=== PATIENT | male | born 1985 | race Caucasian/White ===

== ENCOUNTER 2018-05-11 19:24 | Emergency (ER) | payer SELFPAY ==
[~2018-05-11] VITALS: Ht 177.8 cm; Wt 81.6 kg
[~2018-05-11 19:24] MED LIST: ACHD5005 PO; CYCL10TA9 PO; HYDR-2890 PO; NAPR-243 PO; NF-TRA/ACE PO; PHN100C PO; PNT40TEC; PRD10T PO; PROP1TAB77; TRAM-368 PO; ZLP10T PO
--- OUTSIDE RECORDS SUMMARY | 2018-05-11 19:30 | XMS REPORT ---
Author Author JESUS RICE Organization [facility] Address [address] [place] [address] Care Team Providers Care Travel Registered Nurse Pacu Name Role Phone JESUS RICE Unavailable PROBLEMS Type Condition ICD9-CM Code [id number] Code Onset Dates Condition Status SNOMED Code Problem Attention deficit hyperactivity disorder (ADHD), predominantly inattentive type F90.0 Active 05996196 Problem Abscess of groin L02.214 Active 55569378 Problem Anxiety disorder, unspecified F41.9 Active 695527392 Problem Alcohol dependence, uncomplicated F10.20 Active 68523136 Problem Major depressive disorder, recurrent, moderate F33.1 Active 30602101 ALLERGIES No Known Allergies ENCOUNTERS Encounter Location Date Diagnosis [place] [address] [address] June, Anxiety disorder, unspecified F41.9 [place] [address] [address]- [address] May, Anxiety disorder, unspecified F41.9 [place] [address] [place] [id number] [place] [address] 81961- 3310 Apr, Anxiety disorder, unspecified F41.9 [place] [address] [place] [id number] [place] [address] 06857- 9299 14 Mar, 2017 Anxiety disorder, unspecified F41.9 and Attention deficit hyperactivity disorder (ADHD), predominantly inattentive type F90.0 [place] [address] 067[address]- 2458 15 Feb, 2017 Thoracic neuritis M54.14 [facility] [address] [place] [id number] [place] [address] [id number] 03 Feb, 2017 Dental examination Z01.20 [place] [address] 07879- 3976 Jan, Thoracic neuritis M54.14 [facility] [address] [id number] [id number] Jan, Dental examination Z01.20 [facility] [address] [place] [id number] [place] [address] 730301- 7566 Dec, Thoracic neuritis M54.14 [facility] [address] [place] [id number] [place] [address] 11506- 6356 Nov, [facility] [address] [place] [id number] [place] [address] 70757- 8856 Nov, Thoracic neuritis M54.14 [facility] [address] [id number] [place] [address] [id number] Nov, Dental examination Z01.20 [facility] [address] [place] [address] 915066- 6116 Oct, Thoracic neuritis M54.14 [facility] [address] [place] [address] 19923- 6786 Sep, Thoracic neuritis M54.14 [facility] [address] [place] [id number] [place] [address] 507747- 5666 Sep, Thoracic neuritis M54.14 [facility] [address] [place] [id number] [place] [address] 82688- 4516 Aug, Thoracic neuritis M54.14 [facility] [address] [place] [address] 913194- 3086 Jul, Thoracic neuritis M54.14 [facility] [address] [place] [address] 128242- 3956 Jul, [facility] [address] [place] [id number] [place] [address] 045892- 6516 Jul, [facility] [address] [place] [address] 63171- 5487 June, Thoracic neuritis M54.14 and Attention deficit hyperactivity disorder (ADHD), predominantly inattentive type F90.0 [facility] [address] [id number] June, Dental examination Z01.20 [facility] [address] [place] [id number] [place] [address] 98505- 4391 June, [facility] [address] [place] [id number] [place] [address] 88795- 5814 June, Attention deficit hyperactivity disorder (ADHD), predominantly inattentive type F90.0 [facility] [address] [place] [id number] [place] [address] 15626- 9917 May, Attention deficit hyperactivity disorder (ADHD), predominantly inattentive type F90.0 and Thoracic spine pain M54.6 [facility] [address] [place] [id number] [place] [address] 08940- 4765 May, [facility] [address] [place] [id number] [place] [address] 27286- 8953 Apr, [facility] [address] [place] [id number] [place] [address] 25435- 3542 Apr, [facility] [address] [place] [id number] [place] [address] 97107- 7247 Apr, [facility] [address] [place] [id number] [place] [address] 90079- 6645 Mar, [facility] [address] [place] [id number] [place] [address] 85093- 1762 Feb, [facility] [address] [place] [id number] [place] [address] 45944- 8483 Jan, [facility] [address] [place] [id number] [place] [address] 34761- 7350 Dec, [facility] [address] [place] [id number] [place] [address] 07214- 7432 Dec, [facility] [address] [place] [id number] [place] [address] 57390- 1944 Nov, [facility] [address] [place] [id number] [place] [address] 46177- 0346 Oct, [facility] [address] [place] [id number] [place] [address] 68209- 1487 Sep, ADHD (attention deficit hyperactivity disorder), inattentive type F90.0 and Abscess of scrotal wall N49.[address] [facility] [address] [address] -0321 Sep, Abscess of groin L02.214 [facility] [address] [place] [id number] [place] [address] 59143- 6368 Sep, Muscle spasm M62.838 [facility] [address] [place] [id number] [place] [address] 21506- 7036 Aug, ADHD (attention deficit hyperactivity disorder), inattentive type F90.0 [place] [address] 21761- 8722 Jul, Anxiety F41.9 [place] [address] [place] [id number] [place] [address] 39834- 7326 June, Mood disorder F39 [facility] [address] [place] [id number] [place] [address] 66069- 4694 Apr, Major depressive disorder, recurrent, moderate F33.1 ; Alcohol dependence, uncomplicated F10.20 and Anxiety disorder, unspecified F41.9 [facility] [address] [place] [address] [id number] [place] [address] [phone] Jul, Dental examination V72.2 [facility] [address] [place] [id number] [place] [address] 49013- 7021 14 May, 2014 [facility] [address] 56282- 6639 13 May, 2014 [facility] [address] [place] [id number] [place] [address] 89431- 3376 11 Apr, 2014 [facility] [address] [facility] [id number] [address]- [address] Apr, [facility] [address] [id number] [address]- 7896 Feb, [facility] [address] [id number] [address]- 2546 Feb, [facility] [address] [facility] [id number], [place] [address]- 2546 Jan, [facility] [address] [place] [id number] [address]- 2546 Jan, [facility] [address] [id number] [address]- 1466 Dec, [facility] [address] [facility] [id number], [place] [address]- 3306 Dec, IMMUNIZATIONS No Known Immunizations SOCIAL HISTORY Never Assessed REASON FOR VISIT ADHD, sometimes has trouble sleeping usually because he took it too late in the day. , ameritox, due for refill on Boutte and Adderall today CBrumbackRN PLAN OF CARE VITAL SIGNS Height 71 in 2017-04-04 Weight 161.8 lbs 2017-04-04 Temperature 97.9 degrees Fahrenheit 2017-04-04 Heart Rate 76 bpm 2017-04-04 Respiratory Rate 16 2017-04-04 BMI 22.56 kg/m2 2017-04-04 Blood pressure systolic 120 mmHg 2017-04-04 Blood pressure diastolic 74 mmHg 2017-04-04 MEDICATIONS Medication Instructions Dosage Frequency Start Date End Date Duration Status Adderall 20 MG Orally 2 times a day 1 tablet 12h Mar, 28 days Active Boutte 10-325 MG Orally every 6 hrs 1 tablet as needed 6h Mar, 28 days Active RESULTS No Results PROCEDURES No Known procedures INSTRUCTIONS MEDICATIONS ADMINISTERED No Known Medications MEDICAL (GENERAL) HISTORY Type Description Date Medical History attention deficit hyperactivity disorder Surgical History tonsilectomy Surgical History Right testicle removed. Hospitalization History overnight stay for head injury 2010
--- OUTSIDE RECORDS SUMMARY | 2018-05-11 19:30 | XMS REPORT ---
Author Author JESUS RICE Organization 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 Name Role Phone JESUS RICE Unavailable PROBLEMS Type Condition ICD9-CM Code [id number] Code Onset Dates Condition Status SNOMED Code Problem Attention deficit hyperactivity disorder (ADHD), predominantly inattentive type F90.0 Active 11304716 Problem Abscess of groin L02.214 Active 04921857 Problem Anxiety disorder, unspecified F41.9 Active 193333284 Problem Alcohol dependence, uncomplicated F10.20 Active 13307756 Problem Major depressive disorder, recurrent, moderate F33.1 Active 12635880 ALLERGIES No Information ENCOUNTERS Encounter Location Date Diagnosis [place] [address] [address] June, Anxiety disorder, unspecified F41.9 [place] [address] 560[address]- 0221 May, Anxiety disorder, unspecified F41.9 [place] [address] [place] [id number] [place] [address] 14680- 3836 Apr, Anxiety disorder, unspecified F41.9 [place] [address] 65561- 2255 14 Mar, 2017 Anxiety disorder, unspecified F41.9 and Attention deficit hyperactivity disorder (ADHD), predominantly inattentive type F90.0 [place] [address] 26557- 3611 15 Feb, 2017 Thoracic neuritis M54.14 [facility] [address] [id number] [place] [address] [id number] 03 Feb, 2017 Dental examination Z01.20 [place] [address] 30446- 2286 Jan, Thoracic neuritis M54.14 [facility] [address] [id number] [id number] Jan, Dental examination Z01.20 [facility] [address] [place] [id number] [place] [address] 529075- 8956 Dec, Thoracic neuritis M54.14 [facility] [address] [place] [id number] [place] [address] 17257- 9566 Nov, [facility] [address] [place] [id number] [place] [address] 15926- 0308 Nov, Thoracic neuritis M54.14 [facility] [id number] [place] [address] [id number] Nov, Dental examination Z01.20 [facility] [address] [place] [address] 718522- 4476 Oct, Thoracic neuritis M54.14 [facility] [id number] [place] [address] 96936- 8346 Sep, Thoracic neuritis M54.14 [facility] [address] [place] [id number] [place] [address] 07464- 0846 Sep, Thoracic neuritis M54.14 [facility] [id number] [place] [address] 03375- 6826 Aug, Thoracic neuritis M54.14 [facility] [address] [place] [address] 361506- 6736 Jul, Thoracic neuritis M54.14 [facility] [id number] [place] [address] 549483- 6316 Jul, [facility] [address] [place] [id number] [place] [address] 738352- 3256 Jul, [facility] [id number] [place] [address] 47778- 1296 June, Thoracic neuritis M54.14 and Attention deficit hyperactivity disorder (ADHD), predominantly inattentive type F90.0 [facility] [address] [id number] June, Dental examination Z01.20 [facility] [address] [place] [id number] [place] [address] 57981- 8168 June, [facility] [address] [place] [id number] [place] [address] 75280- 4865 June, Attention deficit hyperactivity disorder (ADHD), predominantly inattentive type F90.0 [facility] [address] [place] [id number] [place] [address] 00997- 2362 May, Attention deficit hyperactivity disorder (ADHD), predominantly inattentive type F90.0 and Thoracic spine pain M54.6 [facility] [address] [place] [id number] [place] [address] 36356- 4219 May, [facility] [address] [place] [id number] [place] [address] 48737- 2751 Apr, [facility] [address] [place] [id number] [place] [address] 66556- 9628 Apr, [facility] [address] [place] [id number] [place] [address] 67561- 7694 Apr, [facility] [address] [place] [id number] [place] [address] 87500- 5659 Mar, [facility] [address] [place] [id number] [place] [address] 65327- 7690 Feb, [facility] [address] [place] [id number] [place] [address] 06826- 8249 Jan, [facility] [address] [place] [id number] [place] [address] 97865- 2960 Dec, [facility] [address] [place] [id number] [place] [address] 20319- 9861 Dec, [facility] [address] [place] [id number] [place] [address] 84238- 3323 Nov, [facility] [address] [place] [id number] [place] [address] 27507- 6731 Oct, [facility] [address] [place] [id number] [place] [address] 84480- 9725 Sep, ADHD (attention deficit hyperactivity disorder), inattentive type F90.0 and Abscess of scrotal wall N49.[address] [facility] [address] [place] [id number] [place] [address] 74128 -6681 Sep, Abscess of groin L02.214 [facility] [address] [place] [id number] [place] [address] 59955- 0442 Sep, Muscle spasm M62.838 [facility] [address] [place] [id number] [place] [address] 95897- 4693 Aug, ADHD (attention deficit hyperactivity disorder), inattentive type F90.0 [place] [address] 56318- 7926 Jul, Anxiety F41.9 [facility] [address] [place] [id number] [place] [address] 54482- 2717 June, Mood disorder F39 [facility] [address] [place] [id number] [place] [address] 58770- 7485 Apr, Major depressive disorder, recurrent, moderate F33.1 ; Alcohol dependence, uncomplicated F10.20 and Anxiety disorder, unspecified F41.9 [facility] [address] [place] [id number] [place] [address] [phone] Jul, Dental examination V72.2 [facility] [address] [place] [id number] [place] [address] 49414- 0293 14 May, 2014 [facility] [address] 01616- 0724 13 May, 2014 [facility] [address] [place] [id number] [place] [address] 17928- 9191 11 Apr, 2014 [facility] [address] [facility] [id number] [address]- 2546 Apr, [facility] [address] [place] [id number] [address] 2546 Feb, [facility] [address] [place] [id number] [address]- 2546 Feb, [facility] [address] [place] [id number] [address]- 2546 Jan, [facility] [address] [place] [id number] [address]- 2546 Jan, [facility] [address] [place] [id number] [address]- 4236 Dec, [facility] [address] [place] [id number] [address]- 7406 Dec, IMMUNIZATIONS No Known Immunizations SOCIAL HISTORY Never Assessed REASON FOR VISIT Controlled Med Refill PLAN OF CARE VITAL SIGNS MEDICATIONS Medication Instructions Dosage Frequency Start Date End Date Duration Status Marcella 10-325 MG Orally 2 times a day 1 tablet as needed 12h Apr, May, 28 days Active Adderall 20 mg Orally Once a day 1 tablet 24h Apr, 28 days Active RESULTS No Results PROCEDURES No Known procedures INSTRUCTIONS MEDICATIONS ADMINISTERED No Known Medications MEDICAL (GENERAL) HISTORY Type Description Date Medical History attention deficit hyperactivity disorder Surgical History tonsilectomy Surgical History Right testicle removed. Hospitalization History overnight stay for head injury 2010
--- OUTSIDE RECORDS SUMMARY | 2018-05-11 19:30 | XMS REPORT ---
Author Author JESUS RICE Organization [facility] Address [address] [place] [address] Care Team Providers Care Plastic Surgery Specialist Name Role Phone JESUS RICE Unavailable PROBLEMS Type Condition ICD9-CM Code [id number] Code Onset Dates Condition Status SNOMED Code Problem Attention deficit hyperactivity disorder (ADHD), predominantly inattentive type F90.0 Active 00196812 Problem Abscess of groin L02.214 Active 68258652 Problem Anxiety disorder, unspecified F41.9 Active 719339642 Problem Alcohol dependence, uncomplicated F10.20 Active 61581778 Problem Major depressive disorder, recurrent, moderate F33.1 Active 26297593 ALLERGIES No Information ENCOUNTERS Encounter Location Date Diagnosis [place] [address] [address] June, Anxiety disorder, unspecified F41.9 [place] [address] 0119[address]- [address]229 May, Anxiety disorder, unspecified F41.9 [place] [address] [place] [id number] [place] [address] 91849- 8636 Apr, Anxiety disorder, unspecified F41.9 [place] [address] 6[address]- [address]26 14 Mar, 2017 Anxiety disorder, unspecified F41.9 and Attention deficit hyperactivity disorder (ADHD), predominantly inattentive type F90.0 [place] [address] 9[address]14- 6422 15 Feb, 2017 Thoracic neuritis M54.14 [facility] [address] [place] [id number] [place] [address] [id number] 03 Feb, 2017 Dental examination Z01.20 [place] [address] 26[address]- 4056 Jan, Thoracic neuritis M54.14 [facility] [address] [id number] [id number] Jan, Dental examination Z01.20 [facility] [address] [place] [id number] [place] [address] [id number]- 2726 Dec, Thoracic neuritis M54.14 [facility] [address] [place] [id number] [place] [address] 31113- 9196 Nov, [facility] [address] [place] [id number] [place] [address] 73232- 4382 Nov, Thoracic neuritis M54.14 [facility] [id number] [place] [address] [id number] Nov, Dental examination Z01.20 [facility] [id number] [place] [address] 573479- 6266 Oct, Thoracic neuritis M54.14 [facility] [id number] [place] [address] 58093- 9946 Sep, Thoracic neuritis M54.14 [facility] [address] [place] [id number] [place] [address] 82465- 4646 Sep, Thoracic neuritis M54.14 [facility] [id number] [place] [address] 64131- 3866 Aug, Thoracic neuritis M54.14 [facility] [address] [place] [address] 436825- 7846 Jul, Thoracic neuritis M54.14 [facility] [address] [place] [address] 031215- 2576 Jul, [facility] [address] [place] [id number] [place] [address] 711639- 6446 Jul, [facility] [address] [place] [address] 38483- 2750 June, Thoracic neuritis M54.14 and Attention deficit hyperactivity disorder (ADHD), predominantly inattentive type F90.0 [facility] [address] [id number] June, Dental examination Z01.20 [facility] [address] [place] [id number] [place] [address] 81404- 9214 June, [facility] [address] [place] [id number] [place] [address] 25246- 3688 June, Attention deficit hyperactivity disorder (ADHD), predominantly inattentive type F90.0 [facility] [address] [place] [id number] [place] [address] 45723- 5538 May, Attention deficit hyperactivity disorder (ADHD), predominantly inattentive type F90.0 and Thoracic spine pain M54.6 [facility] [address] [place] [id number] [place] [address] 94935- 1338 May, [facility] [address] [place] [id number] [place] [address] 22613- 5864 Apr, [facility] [address] [place] [id number] [place] [address] 37221- 3447 Apr, [facility] [address] [place] [id number] [place] [address] 76119- 3425 Apr, [facility] [address] [place] [id number] [place] [address] 70422- 5445 Mar, [facility] [address] [place] [id number] [place] [address] 33544- 8682 Feb, [facility] [address] [place] [id number] [place] [address] 39762- 6801 Jan, [facility] [address] [place] [id number] [place] [address] 51333- 4464 Dec, [facility] [address] [place] [id number] [place] [address] 06579- 5541 Dec, [facility] [address] [place] [id number] [place] [address] 72709- 3025 Nov, [facility] [address] [place] [id number] [place] [address] 76596- 7662 Oct, [facility] [address] [place] [id number] [place] [address] 43474- 4683 Sep, ADHD (attention deficit hyperactivity disorder), inattentive type F90.0 and Abscess of scrotal wall N49.2 [facility] [address] [place] [id number] [place] [address] 43524 -1499 Sep, Abscess of groin L02.214 [facility] [address] [place] [id number] [place] [address] 79138- 4309 Sep, Muscle spasm M62.838 [facility] [address] [place] [id number] [place] [address] 37344- 9810 Aug, ADHD (attention deficit hyperactivity disorder), inattentive type F90.0 [place] [address] 25967- 0302 Jul, Anxiety F41.9 [facility] [address] [place] [id number] [place] [address] 08616- 1035 June, Mood disorder F39 [facility] [address] [place] [id number] [place] [address] 38324- 9651 Apr, Major depressive disorder, recurrent, moderate F33.1 ; Alcohol dependence, uncomplicated F10.20 and Anxiety disorder, unspecified F41.9 [facility] [address] [place] [id number] [place] [address] [phone] Jul, Dental examination V72.2 [facility] [address] [place] [id number] [place] [address] 64438- 0534 14 May, 2014 [facility] [address] 65489- 7435 13 May, 2014 [facility] [address] [place] [id number] [place] [address] 20059- 2084 11 Apr, 2014 [facility] [address] [facility] [id number] [address]- 2546 Apr, [facility] [address] [id number] [address]- 2546 Feb, [facility] [address] [id number] [address]- 2546 Feb, [facility] [address] [place] [id number] [address]- 2546 Jan, [facility] [address] [place] [id number] [address]- 2546 Jan, [facility] [address] [place] [id number] [address]- 2546 Dec, [facility] [address] [id number] [address]- 7856 Dec, IMMUNIZATIONS No Known Immunizations SOCIAL HISTORY Never Assessed REASON FOR VISIT Refill request PLAN OF CARE VITAL SIGNS MEDICATIONS Medication Instructions Dosage Frequency Start Date End Date Duration Status [place] 10-325 MG Orally 2 times a day 1 tablet as needed 12h May, June, 28 days Active Adderall 10 MG Orally Once a day 1 tablet 24h May, 28 days Active RESULTS No Results PROCEDURES No Known procedures INSTRUCTIONS MEDICATIONS ADMINISTERED No Known Medications MEDICAL (GENERAL) HISTORY Type Description Date Medical History attention deficit hyperactivity disorder Surgical History tonsilectomy Surgical History Right testicle removed. Hospitalization History overnight stay for head injury 2010
--- OUTSIDE RECORDS SUMMARY | 2018-05-11 19:30 | XMS REPORT ---
Author Author JESUS RICE Organization [facility] Address [address] [place] [address] Care Team Providers Care Primary Operator Name Role Phone JESUS RICE Unavailable PROBLEMS Type Condition ICD9-CM Code [id number] Code Onset Dates Condition Status SNOMED Code Problem Attention deficit hyperactivity disorder (ADHD), predominantly inattentive type F90.0 Active 89703268 Problem Abscess of groin L02.214 Active 14899592 Problem Anxiety disorder, unspecified F41.9 Active 006679392 Problem Alcohol dependence, uncomplicated F10.20 Active 80447824 Problem Major depressive disorder, recurrent, moderate F33.1 Active 24756727 ALLERGIES No Information ENCOUNTERS Encounter Location Date Diagnosis [place] [address] [address] June, Anxiety disorder, unspecified F41.9 [place] [address] [address]- 1942 May, Anxiety disorder, unspecified F41.9 [place] [address] [place] [id number] [place] [address] 11071- 5557 Apr, Anxiety disorder, unspecified F41.9 [place] [address] 94262- 1690 14 Mar, 2017 Anxiety disorder, unspecified F41.9 and Attention deficit hyperactivity disorder (ADHD), predominantly inattentive type F90.0 [place] [address] 89966- 0311 15 Feb, 2017 Thoracic neuritis M54.14 [facility] [address] [place] [id number] [place] [address] [id number] 03 Feb, 2017 Dental examination Z01.20 [place] [address] 03101- 0256 Jan, Thoracic neuritis M54.14 [facility] [address] [id number] [id number] Jan, Dental examination Z01.20 [facility] [address] [place] [id number] [place] [address] 117718- 7836 Dec, Thoracic neuritis M54.14 [facility] [address] [place] [id number] [place] [address] 39325- 9086 Nov, [facility] [address] [place] [id number] [place] [address] 99391- 5520 Nov, Thoracic neuritis M54.14 [facility] [address] [place] [address] [id number] Nov, Dental examination Z01.20 [facility] [address] [place] [address] 790170- 5236 Oct, Thoracic neuritis M54.14 [facility] [address] [place] [address] 00264- 3396 Sep, Thoracic neuritis M54.14 [facility] [address] [place] [id number] [place] [address] 11513- 7446 Sep, Thoracic neuritis M54.14 [facility] [address] [place] [address] 56945- 2866 Aug, Thoracic neuritis M54.14 [facility] [address] [place] [address] 362429- 5976 Jul, Thoracic neuritis M54.14 [facility] [address] [place] [address] 621946- 5856 Jul, [facility] [address] [place] [id number] [place] [address] 188817- 1646 Jul, [facility] [address] [place] [address] 19741- 4297 June, Thoracic neuritis M54.14 and Attention deficit hyperactivity disorder (ADHD), predominantly inattentive type F90.0 [facility] [address] [id number] June, Dental examination Z01.20 [facility] [address] [place] [id number] [place] [address] 17537- 8979 June, [facility] [address] [place] [id number] [place] [address] 68150- 9795 June, Attention deficit hyperactivity disorder (ADHD), predominantly inattentive type F90.0 [facility] [address] [place] [id number] [place] [address] 51704- 3330 May, Attention deficit hyperactivity disorder (ADHD), predominantly inattentive type F90.0 and Thoracic spine pain M54.6 [facility] [address] [place] [id number] [place] [address] 52420- 4461 May, [facility] [address] [place] [id number] [place] [address] 13581- 4755 Apr, [facility] [address] [place] [id number] [place] [address] 62979- 4840 Apr, [facility] [address] [place] [id number] [place] [address] 89470- 7878 Apr, [facility] [address] [place] [id number] [place] [address] 31789- 1409 Mar, [facility] [address] [place] [id number] [place] [address] 59953- 9983 Feb, [facility] [address] [place] [id number] [place] [address] 86216- 9736 Jan, [facility] [address] [place] [id number] [place] [address] 52260- 3569 Dec, [facility] [address] [place] [id number] [place] [address] 30542- 7097 Dec, [facility] [address] [place] [id number] [place] [address] 32771- 9633 Nov, [facility] [address] [place] [id number] [place] [address] 84348- 7988 Oct, [facility] [address] [place] [id number] [place] [address] 18976- 3487 Sep, ADHD (attention deficit hyperactivity disorder), inattentive type F90.0 and Abscess of scrotal wall N49.2 [facility] [address] [place] [id number] [place] [address] 10798 -6263 Sep, Abscess of groin L02.214 [facility] [address] [place] [id number] [place] [address] 31497- 5340 Sep, Muscle spasm M62.838 [facility] [address] [place] [id number] [place] [address] 85942- 9818 Aug, ADHD (attention deficit hyperactivity disorder), inattentive type F90.0 [place] [address] 19171- 9292 Jul, Anxiety F41.9 [facility] [address] [place] [id number] [place] [address] 09585- 3391 June, Mood disorder F39 [facility] [address] [place] [id number] [place] [address] 77314- 4210 Apr, Major depressive disorder, recurrent, moderate F33.1 ; Alcohol dependence, uncomplicated F10.20 and Anxiety disorder, unspecified F41.9 [facility] [address] [place] [id number] [place] [address] [id number] Jul, Dental examination V72.2 [facility] [address] [place] [id number] [place] [address] 90222- 4439 14 May, 2014 [facility] [address] 26724- 8375 13 May, 2014 [facility] [address] [place] [id number] [place] [address] 16010- 1642 11 Apr, 2014 [facility] [address] [facility] [id number] [address]- 2546 Apr, [facility] [address] [id number] [address] 2546 Feb, [facility] [address] [id number] [address]- 2546 Feb, [facility] [address] [id number] [address]- 2546 Jan, [facility] [address] [id number] [address]- 2546 Jan, [facility] [address] [id number] [address]- 0946 Dec, [facility] [address] [id number] [address]- 8886 Dec, IMMUNIZATIONS No Known Immunizations SOCIAL HISTORY Never Assessed REASON FOR VISIT Controlled Med Refill 06/28/17 PLAN OF CARE VITAL SIGNS MEDICATIONS Medication Instructions Dosage Frequency Start Date End Date Duration Status [place] 5-325 MG Orally 2 times a day 1 tablet as needed 12h June, 28 days Active Adderall 5 MG Orally Once a day 1 tablet 24h June, 28 days Active RESULTS No Results PROCEDURES No Known procedures INSTRUCTIONS MEDICATIONS ADMINISTERED No Known Medications MEDICAL (GENERAL) HISTORY Type Description Date Medical History attention deficit hyperactivity disorder Surgical History tonsilectomy Surgical History Right testicle removed. Hospitalization History overnight stay for head injury 2010
--- OUTSIDE RECORDS SUMMARY | 2018-05-11 19:31 | XMS REPORT ---
Author Author JESUS RICE Organization [facility] Address [address] [place] [address] Care Team Providers Care Toddler Guide Name Role Phone JESUS RICE Unavailable PROBLEMS Type Condition ICD9-CM Code [id number] Code Onset Dates Condition Status SNOMED Code Problem Attention deficit hyperactivity disorder (ADHD), predominantly inattentive type F90.0 Active 08375576 Problem Abscess of groin L02.214 Active 41331529 Problem Anxiety disorder, unspecified F41.9 Active 428546155 Problem Alcohol dependence, uncomplicated F10.20 Active 85933471 Problem Major depressive disorder, recurrent, moderate F33.1 Active 55172967 ALLERGIES No Known Allergies SOCIAL HISTORY Never Assessed PLAN OF CARE VITAL SIGNS Height 71 in 2016-07-10 Weight 173.7 lbs 2016-07-10 Temperature 97.8 degrees Fahrenheit 2016-07-10 Heart Rate 77 bpm 2016-07-10 Respiratory Rate 16 2016-07-10 BMI 24.22 kg/m2 2016-07-10 Blood pressure systolic 131 mmHg 2016-07-10 Blood pressure diastolic 82 mmHg 2016-07-10 MEDICATIONS Medication Instructions Dosage Frequency Start Date End Date Duration Status Adderall 20 MG Orally 2 times a day 1 tablet 12h June, 28 days Active [place] 10-325 MG Orally every 6 hrs 1 tablet as needed 6h June, Jul, 28 days Active RESULTS No Results PROCEDURES Procedure Date Ordered Result Body Site X-RAY EXAM OF THORACIC SPINE July 10, 2016 IMMUNIZATIONS No Known Immunizations MEDICAL (GENERAL) HISTORY Type Description Date Medical History attention deficit hyperactivity disorder Surgical History tonsilectomy Surgical History Right testicle removed. Hospitalization History overnight stay for head injury 2010
--- OUTSIDE RECORDS SUMMARY | 2018-05-11 19:31 | XMS REPORT ---
Author Author JESUS RICE [facility] Address [address] [place] [address] Care Team Providers Care Administrative Services Assistant Name Role Phone JESUS RICE Unavailable PROBLEMS Type Condition ICD9-CM Code JTW15-GE Code Onset Dates Condition Status SNOMED Code Problem Attention deficit hyperactivity disorder (ADHD), predominantly inattentive type F90.0 Active 58910907 Problem Abscess of groin L02.214 Active 40121821 Problem Anxiety disorder, unspecified F41.9 Active 438731380 Problem Alcohol dependence, uncomplicated F10.20 Active 05440081 Problem Major depressive disorder, recurrent, moderate F33.1 Active 27630314 ALLERGIES No Information SOCIAL HISTORY Never Assessed PLAN OF CARE VITAL SIGNS MEDICATIONS Medication Instructions Dosage Frequency Start Date End Date Duration Status Adderall 30 MG Orally Once a day 1 tablet in the morning 24h Mar, 28 days Active RESULTS No Results PROCEDURES No Known procedures IMMUNIZATIONS No Known Immunizations MEDICAL (GENERAL) HISTORY Type Description Date Medical History attention deficit hyperactivity disorder Surgical History tonsilectomy Surgical History Right testicle removed. Hospitalization History overnight stay for head injury 2010
--- OUTSIDE RECORDS SUMMARY | 2018-05-11 19:31 | XMS REPORT ---
Author Author JESUS RICE [facility] Address [address] [place] [address] Care Team Providers Care Textile Knitter Name Role Phone JESUS RICE Unavailable PROBLEMS Type Condition ICD9-CM Code APS23-CS Code Onset Dates Condition Status SNOMED Code Problem Attention deficit hyperactivity disorder (ADHD), predominantly inattentive type F90.0 Active 70486584 Problem Abscess of groin L02.214 Active 20290080 Problem Anxiety disorder, unspecified F41.9 Active 022003331 Problem Alcohol dependence, uncomplicated F10.20 Active 92179887 Problem Major depressive disorder, recurrent, moderate F33.1 Active 53598560 ALLERGIES No Information SOCIAL HISTORY Never Assessed PLAN OF CARE VITAL SIGNS MEDICATIONS Unknown Medications RESULTS No Results PROCEDURES No Known procedures IMMUNIZATIONS No Known Immunizations MEDICAL (GENERAL) HISTORY Type Description Date Medical History attention deficit hyperactivity disorder Surgical History tonsilectomy Surgical History Right testicle removed. Hospitalization History overnight stay for head injury 2010
--- OUTSIDE RECORDS SUMMARY | 2018-05-11 19:31 | XMS REPORT ---
Author Author JESUS RICE [facility] Address [address] [place] [address] Care Team Providers Care Branch Operations Specialist Name Role Phone JESUS RICE Unavailable PROBLEMS Type Condition ICD9-CM Code AVO26-FI Code Onset Dates Condition Status SNOMED Code Problem Attention deficit hyperactivity disorder (ADHD), predominantly inattentive type F90.0 Active 91121065 Problem Abscess of groin L02.214 Active 30165746 Problem Anxiety disorder, unspecified F41.9 Active 588315042 Problem Alcohol dependence, uncomplicated F10.20 Active 30078164 Problem Major depressive disorder, recurrent, moderate F33.1 Active 14851450 ALLERGIES No Information SOCIAL HISTORY Never Assessed PLAN OF CARE VITAL SIGNS MEDICATIONS Medication Instructions Dosage Frequency Start Date End Date Duration Status Adderall 30 MG Orally Once a day 1 tablet in the morning 24h Apr, 28 days Active RESULTS No Results PROCEDURES No Known procedures IMMUNIZATIONS No Known Immunizations MEDICAL (GENERAL) HISTORY Type Description Date Medical History attention deficit hyperactivity disorder Surgical History tonsilectomy Surgical History Right testicle removed. Hospitalization History overnight stay for head injury 2010
--- OUTSIDE RECORDS SUMMARY | 2018-05-11 19:31 | XMS REPORT ---
Author Author KUN DIETRICH [facility] Address Unknown Care Team Providers Care Greens Or Grounds Superintendent Name Role Phone KUN DIETRICH Unavailable PROBLEMS Type Condition ICD9-CM Code [id number] Code Onset Dates Condition Status SNOMED Code Problem Attention deficit hyperactivity disorder (ADHD), predominantly inattentive type F90.0 Active 70743161 Problem Abscess of groin L02.214 Active 46023426 Problem Anxiety disorder, unspecified F41.9 Active 342587216 Problem Alcohol dependence, uncomplicated F10.20 Active 28354248 Problem Major depressive disorder, recurrent, moderate F33.1 Active 77074286 ALLERGIES No Known Allergies ENCOUNTERS Encounter Location Date Diagnosis [facility] [address] [address] June, Anxiety disorder, unspecified F41.9 [facility] [id number] [place] [address] 08801- 2576 May, Anxiety disorder, unspecified F41.9 [facility] [id number] [place] [address] 23356- 9080 Apr, Anxiety disorder, unspecified F41.9 [facility] [id number] [place] [address] 31577- 4287 14 Mar, 2017 Anxiety disorder, unspecified F41.9 and Attention deficit hyperactivity disorder (ADHD), predominantly inattentive type F90.0 [facility] [id number] [place] [address] 42416- 7084 Feb, Thoracic neuritis M54.14 [facility] [id number] [place] [address] [id number] Feb, Dental examination Z01.20 [facility] [address] [address]- [address] Jan, Thoracic neuritis M54.14 [facility] [address] [id number] Jan, Dental examination Z01.20 [facility] [id number] [place] [address] 67355- 8906 Dec, Thoracic neuritis M54.14 [facility] [id number] [place] [address] 42564- 2486 Nov, [facility] [id number] [place] [address] 37226- 0931 Nov, Thoracic neuritis M54.14 [facility] [id number] [place] [address] [id number] Nov, Dental examination Z01.20 [facility] [id number] [place] [address] 81479- 0306 Oct, Thoracic neuritis M54.14 [facility] [id number] [place] [address] 92895- 4466 Sep, Thoracic neuritis M54.14 [facility] [id number] [place] [address] 70815- 7226 Sep, Thoracic neuritis M54.14 [facility] [id number] [place] [address] 31171- 3246 Aug, Thoracic neuritis M54.14 [facility] [id number] [place] [address] 11824- 2236 Jul, Thoracic neuritis M54.14 [facility] [id number] [place] [address] 26946- 8656 Jul, [facility] [id number] [place] [address] 574303- 1096 Jul, [facility] [id number] [place] [address] 89941- 6188 June, Thoracic neuritis M54.14 and Attention deficit hyperactivity disorder (ADHD), predominantly inattentive type F90.0 [facility] [address] [id number] June, Dental examination Z01.20 [facility] [id number] [place] [address] 48366- 2514 June, [facility] [id number] [place] [address] 85169- 4902 June, Attention deficit hyperactivity disorder (ADHD), predominantly inattentive type F90.0 [facility] [id number] [place] [address] 140390- 6974 May, Attention deficit hyperactivity disorder (ADHD), predominantly inattentive type F90.0 and Thoracic spine pain M54.6 [facility] [address] [address] 0909 May, [facility] [id number] [place] [address] 19451- 4516 Apr, [facility] [id number] [place] [address] 81098- 1147 Apr, [facility] [id number] [place] [address] 23268- 8752 Apr, [facility] [address] [address] 9006 08 Mar, 2016 [facility] [address] [address]- 0[address] Feb, [facility] [address] [address] Jan, [facility] [id number] [place] [address] 776388- 4775 Dec, [facility] [address] [id number] Dec, [facility] [id number] [place] [address] 332165- 2505 Nov, [facility] [id number] [place] [address] 05511- 0903 Oct, [facility] [id number] [place] [address] 17079- 0178 Sep, ADHD (attention deficit hyperactivity disorder), inattentive type F90.0 and Abscess of scrotal wall N49.2 [facility] [id number] [place] [address] 17836 -8374 Sep, Abscess of groin L02.214 [facility] [id number] [place] [address] 95413- 5559 Sep, Muscle spasm M62.838 [facility] [id number] [place] [address] 92272- 4302 Aug, ADHD (attention deficit hyperactivity disorder), inattentive type F90.0 [facility] [address] 34171- 0463 Jul, Anxiety F41.9 [facility] [id number] [place] [address] 97624- 8075 June, Mood disorder F39 [facility] [id number] [place] [address] 80272- 8868 Apr, Major depressive disorder, recurrent, moderate F33.1 ; Alcohol dependence, uncomplicated F10.20 and Anxiety disorder, unspecified F41.9 [facility] [id number] [place] [address] [phone] Jul, Dental examination V72.2 [facility] [id number] [place] [address] 88819- 0550 May, [place] [address] 02740- 4461 May, [facility] [id number] [place] [address] 77332- 6468 Apr, [facility] [address] [place] [address]- 2546 Apr, [facility] [id number] [address]- 0266 Feb, [facility] [id number] [address]- 7876 Feb, [facility] [id number] [address]- 1206 Jan, [facility] [id number] [address] 2546 Jan, [facility] [id number] [address]- 7330 Dec, [facility] [id number] [address]- 0396 Dec, IMMUNIZATIONS No Known Immunizations SOCIAL HISTORY Never Assessed REASON FOR VISIT colleen PLAN OF CARE Activity Details Follow Up prn Reason:Filling #8 VITAL SIGNS MEDICATIONS Medication Instructions Dosage Frequency Start Date End Date Duration Status Adderall 20 MG Orally 2 times a day 1 tablet 12h Oct, 28 days Active [place] 10-325 MG Orally every 6 hrs 1 tablet as needed 6h Oct, 28 days Active RESULTS No Results PROCEDURES Procedure Date Ordered Result Body Site LTD ORAL EVALUATION - PROBLEM FOCUS Nov 30, 2016 INTRAORL-PERIAPICAL 1 FILM 53056 Nov 30, 2016 INSTRUCTIONS MEDICATIONS ADMINISTERED No Known Medications MEDICAL (GENERAL) HISTORY Type Description Date Medical History attention deficit hyperactivity disorder Surgical History tonsilectomy Surgical History Right testicle removed. Hospitalization History overnight stay for head injury 2010
--- OUTSIDE RECORDS SUMMARY | 2018-05-11 19:31 | XMS REPORT ---
Author Author JESUS RICE Organization [facility] Address [address] [place] [address] Care Team Providers Care Production Cook Name Role Phone JESUS RICE Unavailable PROBLEMS Type Condition ICD9-CM Code [id number] Code Onset Dates Condition Status SNOMED Code Problem Attention deficit hyperactivity disorder (ADHD), predominantly inattentive type F90.0 Active 69958019 Problem Abscess of groin L02.214 Active 93779695 Problem Anxiety disorder, unspecified F41.9 Active 393903008 Problem Alcohol dependence, uncomplicated F10.20 Active 11142657 Problem Major depressive disorder, recurrent, moderate F33.1 Active 03527060 ALLERGIES No Information ENCOUNTERS Encounter Location Date Diagnosis [place] [id number] [address] June, Anxiety disorder, unspecified F41.9 [place] [address] 174[address]- 4382 May, Anxiety disorder, unspecified F41.9 [place] [id number] [place] [address] 18645- 4486 Apr, Anxiety disorder, unspecified F41.9 [place] [address] 02569- 4236 14 Mar, 2017 Anxiety disorder, unspecified F41.9 and Attention deficit hyperactivity disorder (ADHD), predominantly inattentive type F90.0 [place] [address] 55258- 8960 15 Feb, 2017 Thoracic neuritis M54.14 [facility] [id number] [place] [address] [id number] [phone] Feb, 2017 Dental examination Z01.20 [place] [address] 63750- 6176 Jan, Thoracic neuritis M54.14 [facility] [address] [id number] [id number] Jan, Dental examination Z01.20 [facility] [id number] [place] [address] 861088- 0246 Dec, Thoracic neuritis M54.14 [facility] [id number] [place] [address] 93435- 5286 Nov, [facility] [id number] [place] [address] 10385- 3353 Nov, Thoracic neuritis M54.14 [facility] [address] [place] [address] [id number] Nov, Dental examination Z01.20 [facility] [address] [place] [address] 655102- 4096 Oct, Thoracic neuritis M54.14 [facility] [address] [place] [address] 20013- 8036 Sep, Thoracic neuritis M54.14 [facility] [id number] [place] [address] 31290- 3696 Sep, Thoracic neuritis M54.14 [facility] [address] [place] [address] 12080- 6246 Aug, Thoracic neuritis M54.14 [facility] [address] [place] [address] 805452- 4766 Jul, Thoracic neuritis M54.14 [facility] [address] [place] [address] 498208- 1056 Jul, [facility] [id number] [place] [address] 581298- 9336 Jul, [facility] [address] [place] [address] 25449- 9161 June, Thoracic neuritis M54.14 and Attention deficit hyperactivity disorder (ADHD), predominantly inattentive type F90.0 [facility] [address] [id number] June, Dental examination Z01.20 [facility] [id number] [place] [address] 87226- 3492 June, [facility] [id number] [place] [address] 56012- 1207 June, Attention deficit hyperactivity disorder (ADHD), predominantly inattentive type F90.0 [facility] [id number] [place] [address] 79748- 1270 May, Attention deficit hyperactivity disorder (ADHD), predominantly inattentive type F90.0 and Thoracic spine pain M54.6 [facility] [id number] [place] [address] 78344- 4382 May, [facility] [id number] [place] [address] 71342- 7770 Apr, [facility] [id number] [place] [address] 17633- 0923 Apr, [facility] [id number] [place] [address] 74790- 4376 Apr, [facility] [id number] [place] [address] 78085- 3721 Mar, [facility] [id number] [place] [address] 65241- 6209 Feb, [facility] [id number] [place] [address] 85975- 5227 Jan, [facility] [id number] [place] [address] 32669- 8311 Dec, [facility] [id number] [place] [address] 29860- 6513 Dec, [facility] [id number] [place] [address] 92061- 6864 Nov, [facility] [id number] [place] [address] 19460- 5460 Oct, [facility] [id number] [place] [address] 23731- 6496 Sep, ADHD (attention deficit hyperactivity disorder), inattentive type F90.0 and Abscess of scrotal wall N49.2 [facility] [id number] [place] [address] 97406 -4764 Sep, Abscess of groin L02.214 [facility] [id number] [place] [address] 68582- 4154 Sep, Muscle spasm M62.838 [facility] [id number] [place] [address] 76607- 4493 Aug, ADHD (attention deficit hyperactivity disorder), inattentive type F90.0 [place] [address] 85756- 0269 Jul, Anxiety F41.9 [facility] [id number] [place] [address] 41687- 7244 June, Mood disorder F39 [facility] [id number] [place] [address] 22243- 3072 Apr, Major depressive disorder, recurrent, moderate F33.1 ; Alcohol dependence, uncomplicated F10.20 and Anxiety disorder, unspecified F41.9 [facility] [id number] [place] [address] [id number] Jul, Dental examination V72.2 [facility] [id number] [place] [address] 16480- 9660 14 May, 2014 [facility] [address] 77040- 7997 13 May, 2014 [facility] [id number] [place] [address] 43821- 7595 11 Apr, 2014 [facility] [id number] [address]- 8596 Apr, [facility] [id number] [address]- 0296 Feb, [facility] [address] [place] [address]- 8571 Feb, [facility] [id number] [address]- 8223 Jan, [facility] [address], [place] [address]- 9987 Jan, [facility] [id number] [address]- 4258 Dec, [facility] [id number] [address]- 1045 Dec, IMMUNIZATIONS No Known Immunizations SOCIAL HISTORY Never Assessed REASON FOR VISIT Controlled Med Refill PLAN OF CARE VITAL SIGNS MEDICATIONS Unknown Medications RESULTS No Results PROCEDURES No Known procedures INSTRUCTIONS MEDICATIONS ADMINISTERED No Known Medications MEDICAL (GENERAL) HISTORY Type Description Date Medical History attention deficit hyperactivity disorder Surgical History tonsilectomy Surgical History Right testicle removed. Hospitalization History overnight stay for head injury 2010
--- OUTSIDE RECORDS SUMMARY | 2018-05-11 19:31 | XMS REPORT ---
Author Author JESUS RICE [facility] Address [address] [place] [address] Care Team Providers Care Graphite Grinder Name Role Phone JESUS RICE Unavailable PROBLEMS Type Condition ICD9-CM Code [id number] Code Onset Dates Condition Status SNOMED Code Problem Attention deficit hyperactivity disorder (ADHD), predominantly inattentive type F90.0 Active 34715469 Problem Abscess of groin L02.214 Active 77999944 Problem Anxiety disorder, unspecified F41.9 Active 806949347 Problem Alcohol dependence, uncomplicated F10.20 Active 15539287 Problem Major depressive disorder, recurrent, moderate F33.1 Active 51031526 ALLERGIES No Information SOCIAL HISTORY Never Assessed PLAN OF CARE VITAL SIGNS MEDICATIONS Unknown Medications RESULTS No Results PROCEDURES No Known procedures IMMUNIZATIONS No Known Immunizations MEDICAL (GENERAL) HISTORY Type Description Date Medical History attention deficit hyperactivity disorder Surgical History tonsilectomy Surgical History Right testicle removed. Hospitalization History overnight stay for head injury 2010
--- OUTSIDE RECORDS SUMMARY | 2018-05-11 19:31 | XMS REPORT ---
Author Author JESUS RICE Organization [facility] Address [address] [place] [address] Care Team Providers Care Last Chalker Name Role Phone JESUS RICE Unavailable PROBLEMS Type Condition ICD9-CM Code [id number] Code Onset Dates Condition Status SNOMED Code Problem Attention deficit hyperactivity disorder (ADHD), predominantly inattentive type F90.0 Active 47038790 Problem Abscess of groin L02.214 Active 02418403 Problem Anxiety disorder, unspecified F41.9 Active 198011385 Problem Alcohol dependence, uncomplicated F10.20 Active 24564282 Problem Major depressive disorder, recurrent, moderate F33.1 Active 45516569 ALLERGIES No Information ENCOUNTERS Encounter Location Date Diagnosis [place] [id number] [address] June, Anxiety disorder, unspecified F41.9 [place] [address] [address] May, Anxiety disorder, unspecified F41.9 [place] [address] [place] [id number] [place] [address] 76444- 1193 Apr, Anxiety disorder, unspecified F41.9 [place] [address] 00[address]- [address] 14 Mar, 2017 Anxiety disorder, unspecified F41.9 and Attention deficit hyperactivity disorder (ADHD), predominantly inattentive type F90.0 [place] [address] [address]- [address] 15 Feb, [address] [facility] [id number] [place] [address] [id number] 03 Feb, 2017 Dental examination Z01.20 [place] [address] 9[address]42- 4646 Jan, Thoracic neuritis M54.14 [facility] [address] [id number] [id number] Jan, Dental examination Z01.20 [facility] [id number] [place] [address] 098907- 6816 Dec, Thoracic neuritis M54.14 [facility] [address] [id number] [place] [address] 65311- 2376 Nov, [facility] [address] [address] [id number] [place] [address] 88492- 4675 Nov, Thoracic neuritis M54.14 [facility] [id number] [place] [address] [id number] Nov, Dental examination Z01.20 [facility] [id number] [place] [address] 484112- 8686 Oct, Thoracic neuritis M54.14 [facility] [id number] [place] [address] 70348- 5536 Sep, Thoracic neuritis M54.14 [facility] [address] [address] [id number] [place] [address] 87889- 3426 Sep, Thoracic neuritis M54.14 [facility] [id number] [place] [address] 43667- 6016 Aug, Thoracic neuritis M54.14 [facility] [id number] [place] [address] 453690- 0596 Jul, Thoracic neuritis M54.14 [facility] [id number] [place] [address] 429837- 1676 Jul, [facility] [address] [place] [address] [id number] [place] [address] 478188- 1706 Jul, [facility] [id number] [place] [address] 63566- 9296 June, Thoracic neuritis M54.14 and Attention deficit hyperactivity disorder (ADHD), predominantly inattentive type F90.0 [facility] [address] [id number] June, Dental examination Z01.20 [facility] [address] [id number] [place] [address] 20106- 6325 June, [facility] [address] [place] [id number] [place] [address] 09568- 5987 June, Attention deficit hyperactivity disorder (ADHD), predominantly inattentive type F90.0 [facility] [address] [place] [id number] [place] [address] 44589- 1605 May, Attention deficit hyperactivity disorder (ADHD), predominantly inattentive type F90.0 and Thoracic spine pain M54.6 [facility] [address] [place] [id number] [place] [address] 77443- 2188 May, [facility] [address] [place] [id number] [place] [address] 84004- 2063 Apr, [facility] [address] [place] [id number] [place] [address] 95885- 4576 Apr, [facility] [address] [place] [id number] [place] [address] 88857- 8668 Apr, [facility] [address] [place] [id number] [place] [address] 47590- 1179 Mar, [facility] [address] [place] [id number] [place] [address] 22253- 7254 Feb, [facility] [address] [place] [id number] [place] [address] 56967- 6180 Jan, [facility] [address] [place] [id number] [place] [address] 99117- 4127 Dec, [facility] [address] [place] [id number] [place] [address] 38625- 3696 Dec, [facility] [address] [place] [id number] [place] [address] 48723- 8432 Nov, [facility] [address] [place] [id number] [place] [address] 99869- 2941 Oct, [facility] [address] [place] [id number] [place] [address] 06138- 4469 Sep, ADHD (attention deficit hyperactivity disorder), inattentive type F90.0 and Abscess of scrotal wall N49.2 [facility] [address] [place] [id number] [place] [address] 59181 -9847 Sep, Abscess of groin L02.214 [facility] [address] [place] [id number] [place] [address] 76911- 9312 Sep, Muscle spasm M62.838 [facility] [address] [place] [id number] [place] [address] 72665- 9359 Aug, ADHD (attention deficit hyperactivity disorder), inattentive type F90.0 [place] [address] 09521- 4374 Jul, Anxiety F41.9 [facility] [address] [place] [id number] [place] [address] 82839- 8795 June, Mood disorder F39 [facility] [address] [place] [id number] [place] [address] 03458- 8740 Apr, Major depressive disorder, recurrent, moderate F33.1 ; Alcohol dependence, uncomplicated F10.20 and Anxiety disorder, unspecified F41.9 [facility] [address] [id number] [place] [address] [id number] Jul, Dental examination V72.2 [facility] [address] [place] [id number] [place] [address] 08224- 8632 14 May, 2014 [facility] [address] 05453- 7135 13 May, 2014 [facility] [address] [place] [id number] [place] [address] 77992- 3434 11 Apr, 2014 [facility] [address] [facility] [id number] [address]- 2546 Apr, [facility] [address] [place] [id number] [address] 2546 Feb, [facility] [address] [place] [id number] [address]- 2546 Feb, [facility] [address] [place] [id number] [address]- 2546 Jan, [facility] [address] [place] [id number] [address]- 2546 Jan, [facility] [address] [place] [id number] [address]- 6266 Dec, [facility] [address] [place] [id number] [address]- 5066 Dec, IMMUNIZATIONS No Known Immunizations SOCIAL HISTORY Never Assessed REASON FOR VISIT Controlled Med Refill 12/13/16 PLAN OF CARE VITAL SIGNS MEDICATIONS Medication Instructions Dosage Frequency Start Date End Date Duration Status Adderall 20 MG Orally 2 times a day 1 tablet 12h Nov, 28 days Active [place] 10-325 MG Orally every 6 hrs 1 tablet as needed 6h Nov, 28 days Active RESULTS No Results PROCEDURES No Known procedures INSTRUCTIONS MEDICATIONS ADMINISTERED No Known Medications MEDICAL (GENERAL) HISTORY Type Description Date Medical History attention deficit hyperactivity disorder Surgical History tonsilectomy Surgical History Right testicle removed. Hospitalization History overnight stay for head injury 2010
--- OUTSIDE RECORDS SUMMARY | 2018-05-11 19:31 | XMS REPORT ---
Author Author KUN DIETRICH [facility] Address Unknown Care Team Providers Care Director Hair Name Role Phone KUN DIETRICH Unavailable PROBLEMS Type Condition ICD9-CM Code [id number] Code Onset Dates Condition Status SNOMED Code Problem Attention deficit hyperactivity disorder (ADHD), predominantly inattentive type F90.0 Active 80838390 Problem Abscess of groin L02.214 Active 79088502 Problem Anxiety disorder, unspecified F41.9 Active 072570023 Problem Alcohol dependence, uncomplicated F10.20 Active 04937909 Problem Major depressive disorder, recurrent, moderate F33.1 Active 42577954 ALLERGIES No Information ENCOUNTERS Encounter Location Date Diagnosis [facility] [address] [address]- [address] June, Anxiety disorder, unspecified F41.9 [facility] [address] [place] [id number] [place] [address] 67744- 3583 May, Anxiety disorder, unspecified F41.9 [facility] [address] [place] [id number] [place] [address] 21699- 8629 Apr, Anxiety disorder, unspecified F41.9 [facility] [address] [place] [id number] [place] [address] 27076- 0811 14 Mar, 2017 Anxiety disorder, unspecified F41.9 and Attention deficit hyperactivity disorder (ADHD), predominantly inattentive type F90.0 [facility] [address] [place] [id number] [place] [address] 96320- 4929 Feb, Thoracic neuritis M54.14 [facility] [address] [place] [id number] [place] [address] [id number] Feb, Dental examination Z01.20 [facility] [address] 37509- 8610 Jan, Thoracic neuritis M54.14 [facility] [id number] [id number] Jan, Dental examination Z01.20 [facility] [address] [place] [id number] [place] [address] 99321- 2496 Dec, Thoracic neuritis M54.14 [facility] [address] [place] [id number] [place] [address] 96766- 1446 Nov, [facility] [address] [place] [id number] [place] [address] 60626- 1566 Nov, Thoracic neuritis M54.14 [facility] [address] [place] [id number] [place] [address] [id number] Nov, Dental examination Z01.20 [facility] [address] [place] [id number] [place] [address] 61953- 6266 Oct, Thoracic neuritis M54.14 [facility] [address] [place] [id number] [place] [address] 59104- 6536 Sep, Thoracic neuritis M54.14 [facility] [address] [place] [id number] [place] [address] 67946- 3586 Sep, Thoracic neuritis M54.14 [facility] [address] [place] [id number] [place] [address] 38558- 6246 Aug, Thoracic neuritis M54.14 [facility] [address] [place] [id number] [place] [address] 39812- 5756 Jul, Thoracic neuritis M54.14 [facility] [address] [place] [id number] [place] [address] 38543- 8476 Jul, [facility] [address] [place] [id number] [place] [address] 43354- 8906 Jul, [facility] [address] [place] [address] 05238- 9347 June, Thoracic neuritis M54.14 and Attention deficit hyperactivity disorder (ADHD), predominantly inattentive type F90.0 [facility] [address] [id number] June, Dental examination Z01.20 [facility] [address] [id number] [address]- 6583 June, [facility] [address] [address]- 8381 June, Attention deficit hyperactivity disorder (ADHD), predominantly inattentive type F90.0 [facility] [address] [place] [address] 726104- 1474 May, Attention deficit hyperactivity disorder (ADHD), predominantly inattentive type F90.0 and Thoracic spine pain M54.6 [facility] [address] [address]- 7313 May, [facility] [address] [place] [id number] [place] [address] 95905- 8400 Apr, [facility] [address] [address]- 4716 Apr, [facility] [address] [place] [id number] [place] [address] 93949- 4936 Apr, [facility] [address] [address]- 6026 08 Mar, 2016 [facility] [id number] [address]- 4783 Feb, [facility] [address] [address]- 2240 Jan, [facility] [address] [place] [id number]- 3354 Dec, [facility] [id number] [address]- 1500 Dec, [facility] [id number] [address]- 5852 Nov, [facility] [address] [place] [address] 44804- 3723 Oct, [facility] [address] [place] [id number] [place] [address] 94028- 8253 Sep, ADHD (attention deficit hyperactivity disorder), inattentive type F90.0 and Abscess of scrotal wall N49.2 [facility] [address] [place] [id number] [place] [address] 52580 -8809 Sep, Abscess of groin L02.214 [facility] [address] [place] [id number] [place] [address] 61056- 5156 Sep, Muscle spasm M62.838 [place] [address] [place] [id number] [place] [address] 70525- 7491 Aug, ADHD (attention deficit hyperactivity disorder), inattentive type F90.0 [facility] [address] [place] [id number] [place] [address] 00324- 7639 Jul, Anxiety F41.9 [facility] [address] [place] [id number] [place] [address] 46486- 4881 June, Mood disorder F39 [place] [address] [place] [id number] [place] [address] 24482- 6355 Apr, Major depressive disorder, recurrent, moderate F33.1 ; Alcohol dependence, uncomplicated F10.20 and Anxiety disorder, unspecified F41.9 [facility] [address] [place] [id number] [place] [address] [id number] Jul, Dental examination V72.2 [facility] [address] [place] [id number] [place] [address] 32136- 2340 May, [facility] [address] 10805- 4207 May, [facility] [address] [place] [id number] [place] [address] 42808- 2215 Apr, [facility] [address] [place] [address]- 5546 Apr, [facility] [address] [place] [id number] [address]- 8435 Feb, [facility] [address] [place] [address] [id number] [address]- 6826 Feb, [facility] [address] [place] [id number] [address] 2546 Jan, [facility] [address] [place] [id number] [address]- 7716 Jan, [facility] [address] [place] [id number] [address]- 1372 Dec, [facility] [address] [place] [address] [id number] [address]- 6854 Dec, IMMUNIZATIONS No Known Immunizations SOCIAL HISTORY Never Assessed REASON FOR VISIT colleen PLAN OF CARE VITAL SIGNS MEDICATIONS Unknown Medications RESULTS No Results PROCEDURES Procedure Date Ordered Result Body Site RESIN COMPOS - 3 SURFACES ANTERIOR Jan 19, 2017 INSTRUCTIONS MEDICATIONS ADMINISTERED No Known Medications MEDICAL (GENERAL) HISTORY Type Description Date Medical History attention deficit hyperactivity disorder Surgical History tonsilectomy Surgical History Right testicle removed. Hospitalization History overnight stay for head injury 2010
--- OUTSIDE RECORDS SUMMARY | 2018-05-11 19:32 | XMS REPORT ---
Author Author JESUS RICE Organization [facility] Address [address] [place] [address] Care Team Providers Care Motor And Chassis Inspector Name Role Phone JESUS RICE Unavailable PROBLEMS Type Condition ICD9-CM Code [id number] Code Onset Dates Condition Status SNOMED Code Problem Attention deficit hyperactivity disorder (ADHD), predominantly inattentive type F90.0 Active 82753022 Problem Abscess of groin L02.214 Active 81441264 Problem Anxiety disorder, unspecified F41.9 Active 529690496 Problem Alcohol dependence, uncomplicated F10.20 Active 18187921 Problem Major depressive disorder, recurrent, moderate F33.1 Active 49876923 ALLERGIES No Information ENCOUNTERS Encounter Location Date Diagnosis [place] [address] [address] Apr, Anxiety disorder, unspecified F41.[address] [address]- [address] Mar, Anxiety disorder, unspecified F41.9 and Attention deficit hyperactivity disorder (ADHD), predominantly inattentive type F90.0 [place] [address] [place] [id number] [place] [address] 79559- 7054 Feb, Thoracic neuritis M54.14 [facility] [address] [id number] Feb, Dental examination Z01.20 [facility] [address] 82673- 9756 Jan, Thoracic neuritis M54.14 [facility] [address] [id number] Jan, Dental examination Z01.20 [place] [address] 19172- 0571 Dec, Thoracic neuritis M54.14 [facility] [address] [place] [id number] [place] [address] 51802- 3236 Nov, [facility] [address] [place] [id number] [place] [address] 408855- 7886 Nov, Thoracic neuritis M54.14 [facility] [address] [place] [address] [id number] Nov, Dental examination Z01.20 [facility] [address] [place] [id number] [place] [address] 75257- 9526 Oct, Thoracic neuritis M54.14 [facility] [address] [place] [id number] [place] [address] 94243- 0836 Sep, Thoracic neuritis M54.14 [facility] [address] [place] [id number] [place] [address] 64919- 5556 Sep, Thoracic neuritis M54.14 [facility] [address] [place] [id number] [place] [address] 95144- 1330 Aug, Thoracic neuritis M54.14 [facility] [address] [place] [id number] [place] [address] 99257- 7388 Jul, Thoracic neuritis M54.14 [facility] [address] [place] [id number] [place] [address] 71858- 8116 Jul, [facility] [address] [place] [id number] [place] [address] 34849- 8601 Jul, [facility] [address] [place] [id number] [place] [address] 54497- 0280 June, Thoracic neuritis M54.14 and Attention deficit hyperactivity disorder (ADHD), predominantly inattentive type F90.0 [facility] [address] [place] [address] [id number] June, Dental examination Z01.20 [facility] [address] [place] [id number] [place] [address] 42531- 0014 June, [facility] [address] [address] 4817 June, Attention deficit hyperactivity disorder (ADHD), predominantly inattentive type F90.0 [facility] [address] [address] [address] May, Attention deficit hyperactivity disorder (ADHD), predominantly inattentive type F90.0 and Thoracic spine pain M54.6 [facility] [address] [place] [id number] [place] [address] 34584- 6544 May, [facility] [address] [place] [id number] [place] [address]- 7144 Apr, [facility] [address] [place] [id number] [place] [address] 36824- 0888 Apr, [facility] [address] [place] [id number] [place] [address] 21775- 2602 Apr, [facility] [address] [place] [id number] [address]- 8760 Mar, [facility] [address] [address]- 5533 Feb, [facility] [address] [address]- 7522 Jan, [facility] [address] [address]- 7153 Dec, [facility] [address] [address]- 6464 Dec, [facility] [address] 3012 Nov, [facility] [address] 6725 Oct, [facility] [address] [address]- 0091 Sep, ADHD (attention deficit hyperactivity disorder), inattentive type F90.0 and Abscess of scrotal wall N49.2 [facility] [address] [place] [id number] [place] [address] 56527 -9537 Sep, Abscess of groin L02.214 [facility] [address] [place] [id number] [place] [address] 74954- 9198 Sep, Muscle spasm M62.838 [facility] [address] 13397- 4190 Aug, ADHD (attention deficit hyperactivity disorder), inattentive type F90.0 [facility] [address] [place] [id number] [place] [address] 20162- 4573 Jul, Anxiety F41.9 [facility] [address] [place] [id number] [place] [address] 82038- 8301 June, Mood disorder F39 [facility] [address] 41818- 6090 Apr, Major depressive disorder, recurrent, moderate F33.1 ; Alcohol dependence, uncomplicated F10.20 and Anxiety disorder, unspecified F41.9 [facility] [address] [id number] Jul, Dental examination V72.2 [facility] [address] [place] [id number] [place] [address] 68088- 6214 14 May, 2014 [facility] [address] [place] [id number] [place] [address] 35867- 5415 May, [facility] [address] [place] [id number] [place] [address] 35408- 0246 Apr, [facility] [address] 05894- 6417 Apr, [facility] [address] [place] [id number] [place] [address] 14438- 8434 Feb, [facility] [address] 39871- 4184 Feb, [facility] [address] [facility] [id number] [address]- 2546 Jan, [facility] [address] [facility] [id number] [address]- 2546 Jan, [facility] [address] [facility] [id number] [address]- 2546 Dec, [facility] [address] [facility] [id number] [address]- 2546 Dec, IMMUNIZATIONS No Known Immunizations SOCIAL HISTORY Never Assessed REASON FOR VISIT Controlled Refill Requests PLAN OF CARE VITAL SIGNS MEDICATIONS Medication Instructions Dosage Frequency Start Date End Date Duration Status Adderall 20 MG Orally 2 times a day 1 tablet 12h Aug, 28 days Active Thorp 10-325 MG Orally every 6 hrs 1 tablet as needed 6h Aug, 28 days Active RESULTS No Results PROCEDURES No Known procedures INSTRUCTIONS MEDICATIONS ADMINISTERED No Known Medications MEDICAL (GENERAL) HISTORY Type Description Date Medical History attention deficit hyperactivity disorder Surgical History tonsilectomy Surgical History Right testicle removed. Hospitalization History overnight stay for head injury 2010
--- OUTSIDE RECORDS SUMMARY | 2018-05-11 19:32 | XMS REPORT ---
Author Author JESUS RICE Organization [facility] Address [address] [place] [address] Care Team Providers Care Deputy Manager Name Role Phone JESUS RICE Unavailable PROBLEMS Type Condition ICD9-CM Code OUP06-UG Code Onset Dates Condition Status SNOMED Code Problem Attention deficit hyperactivity disorder (ADHD), predominantly inattentive type F90.0 Active 12973024 Problem Abscess of groin L02.214 Active 81904504 Problem Anxiety disorder, unspecified F41.9 Active 175880790 Problem Alcohol dependence, uncomplicated F10.20 Active 67753519 Problem Major depressive disorder, recurrent, moderate F33.1 Active 39162150 ALLERGIES No Information ENCOUNTERS Encounter Location Date Diagnosis [place] [address] [address]46- 6789 May, Anxiety disorder, unspecified F41.9 [place] [address] 66375- 0348 Apr, Anxiety disorder, unspecified F41.9 [place] [address] 83452- 5092 Mar, Anxiety disorder, unspecified F41.9 and Attention deficit hyperactivity disorder (ADHD), predominantly inattentive type F90.0 [place] [address] 27962- 3341 Feb, Thoracic neuritis M54.14 [facility] [address] [id number] Feb, Dental examination Z01.20 [place] [address] 97605- 9834 Jan, Thoracic neuritis M54.14 [facility] [address] [id number] Jan, Dental examination Z01.20 [facility] [address] [place] [id number] [place] [address] 61984- 7986 Dec, Thoracic neuritis M54.14 [facility] [address] [place] [id number] [place] [address] 82444- 2276 Nov, [facility] [address] [place] [id number] [place] [address] 61729- 1926 Nov, Thoracic neuritis M54.14 [facility] [address] [place] [address] [id number] Nov, Dental examination Z01.20 [facility] [address] [place] [id number] [place] [address] 64407- 7196 Oct, Thoracic neuritis M54.14 [facility] [address] [place] [id number] [place] [address] 87293- 8626 Sep, Thoracic neuritis M54.14 [facility] [address] [place] [address] [place] [address] 06914- 8736 Sep, Thoracic neuritis M54.14 [facility] [address] [place] [address] [place] [address] 41493- 5416 Aug, Thoracic neuritis M54.14 [facility] [address] [place] [id number] [place] [address] 71762 2546 Jul, Thoracic neuritis M54.14 [facility] [address] [place] [id number] [place] [address] 87535 2546 Jul, [facility] [address] [place] [address] [place] [address] 02212- 0866 Jul, [facility] [address] [place] [id number] [place] [address] 63201- 2546 June, Thoracic neuritis M54.14 and Attention deficit hyperactivity disorder (ADHD), predominantly inattentive type F90.0 [facility] [address] [place] [address] [id number] June, Dental examination Z01.20 [facility] [address] [id number] [address]- 9247 June, [facility] [address] [place] [address] [place] [address] 889370- 6876 June, Attention deficit hyperactivity disorder (ADHD), predominantly inattentive type F90.0 [facility] [address] [place] [id number] [place] [address] 07626- 7744 May, Attention deficit hyperactivity disorder (ADHD), predominantly inattentive type F90.0 and Thoracic spine pain M54.6 [facility] [address] [place] [address] [place] [address] 47933- 1086 May, [facility] [address] [place] [id number] [place] [address] 40920- 5486 Apr, [facility] [address] [place] [address] [place] [address] 756690- 4284 Apr, [facility] [address] [place] [address] [place] [address] 46065- 0248 Apr, [facility] [address] [place] [address] [place] [address] 730218- 1526 08 Mar, 2016 [facility] [address] 9046 Feb, [facility] [address] [place] [address] 26547- 2616 Jan, [facility] [address] [id number] [address]- 9976 Dec, [facility] [address] [place] [address] [place] [address] 13360- 0016 Dec, [facility] [address] [place] [id number] [address]- 4536 Nov, [facility] [address] [place] [address] 53391- 3786 Oct, [facility] [address] [place] [address] 55069- 1915 Sep, ADHD (attention deficit hyperactivity disorder), inattentive type F90.0 and Abscess of scrotal wall N49.2 [facility] [address] [place] [address] 67655 -7613 Sep, Abscess of groin L02.214 [facility] [address] [place] [address] [place] [address] 58005- 6929 Sep, Muscle spasm M62.838 [facility] [address] [place] [address] [place] [address] 19210- 5007 Aug, ADHD (attention deficit hyperactivity disorder), inattentive type F90.0 [facility] [address] [place] [address] [place] [address] 07651- 5864 Jul, Anxiety F41.9 [facility] [address] [place] [address] [place] [address] 24299- 3796 June, Mood disorder F39 [facility] [address] [place] [address] [place] [address] 59698- 3569 Apr, Major depressive disorder, recurrent, moderate F33.1 ; Alcohol dependence, uncomplicated F10.20 and Anxiety disorder, unspecified F41.9 [facility] [address] [place] [id number] [place] [address] [id number] Jul, Dental examination V72.2 [facility] [address] [place] [id number] [place] [address] 23211- 6269 May, [facility] [address] [place] [address] [place] [address] 74503- 2732 May, [facility] [address] [place] [address] [place] [address] 69773- 3241 Apr, [facility] [address] [place] [id number] [place] [address] 86844- 7152 Apr, [facility] [address] [place] [address]- 2546 Feb, [facility] [address] [place] [id number] [address]- 2546 Feb, [facility] [address] [place] [id number] [address]- 2546 Jan, [facility] [address] [place] [id number] [address]- 2546 Jan, [facility] [address] [place] [id number] [address]- 2546 Dec, [facility] [address] [facility] [id number] [address]- 9296 Dec, IMMUNIZATIONS No Known Immunizations SOCIAL HISTORY Never Assessed REASON FOR VISIT Controlled Med Refill 10/18/16 PLAN OF CARE VITAL SIGNS MEDICATIONS Medication Instructions Dosage Frequency Start Date End Date Duration Status Wellington 10-325 MG Orally every 6 hrs 1 tablet as needed 6h Sep, 28 days Active Adderall 20 MG Orally 2 times a day 1 tablet 12h Sep, 28 days Active RESULTS No Results PROCEDURES No Known procedures INSTRUCTIONS MEDICATIONS ADMINISTERED No Known Medications MEDICAL (GENERAL) HISTORY Type Description Date Medical History attention deficit hyperactivity disorder Surgical History tonsilectomy Surgical History Right testicle removed. Hospitalization History overnight stay for head injury 2010
--- OUTSIDE RECORDS SUMMARY | 2018-05-11 19:32 | XMS REPORT ---
Author Author JESUS RICE Organization [facility] Address [address] [place] [address] Care Team Providers Care Computer Peripheral Equipment Operator Name Role Phone JESUS RICE Unavailable PROBLEMS Type Condition ICD9-CM Code INF83-SX Code Onset Dates Condition Status SNOMED Code Problem Attention deficit hyperactivity disorder (ADHD), predominantly inattentive type F90.0 Active 61282549 Problem Abscess of groin L02.214 Active 88100616 Problem Anxiety disorder, unspecified F41.9 Active 622882448 Problem Alcohol dependence, uncomplicated F10.20 Active 12936822 Problem Major depressive disorder, recurrent, moderate F33.1 Active 53655630 ALLERGIES No Information ENCOUNTERS Encounter Location Date Diagnosis [place] [address] 9[address]67- 5443 June, Anxiety disorder, unspecified F41.9 [place] [address] 03855- 8827 May, Anxiety disorder, unspecified F41.9 [place] [address] [place] [id number] [place] [address] 56591- 9488 Apr, Anxiety disorder, unspecified F41.9 [place] [address] 56576- 0729 14 Mar, 2017 Anxiety disorder, unspecified F41.9 and Attention deficit hyperactivity disorder (ADHD), predominantly inattentive type F90.0 [place] [address] 73829- 1943 15 Feb, 2017 Thoracic neuritis M54.14 [facility] [address] [place] [id number] [place] [address] [id number] 03 Feb, 2017 Dental examination Z01.20 [place] [address] 61228- 9126 Jan, Thoracic neuritis M54.14 [facility] [address] [id number] [id number] Jan, Dental examination Z01.20 [facility] [address] [place] [id number] [place] [address] 937792- 3326 Dec, Thoracic neuritis M54.14 [facility] [address] [place] [id number] [place] [address] 92160- 2196 Nov, [facility] [address] [place] [id number] [place] [address] 61142- 1370 Nov, Thoracic neuritis M54.14 [facility] [address] [place] [address] [id number] Nov, Dental examination Z01.20 [facility] [address] [place] [address] 881514- 8206 Oct, Thoracic neuritis M54.14 [facility] [address] [place] [address] 77665- 8906 Sep, Thoracic neuritis M54.14 [facility] [address] [place] [id number] [place] [address] 42479- 2876 Sep, Thoracic neuritis M54.14 [facility] [address] [place] [address] 16107- 7246 Aug, Thoracic neuritis M54.14 [facility] [address] [place] [address] 809471- 1236 Jul, Thoracic neuritis M54.14 [facility] [address] [place] [address] 252211- 9336 Jul, [facility] [address] [place] [id number] [place] [address] 087769- 9006 Jul, [facility] [address] [place] [address] 22257- 4500 June, Thoracic neuritis M54.14 and Attention deficit hyperactivity disorder (ADHD), predominantly inattentive type F90.0 [facility] [address] [address] June, Dental examination Z01.20 [facility] [address] [place] [id number] [place] [address] 24153- 5307 June, [facility] [address] [place] [id number] [place] [address] 99453- 1161 June, Attention deficit hyperactivity disorder (ADHD), predominantly inattentive type F90.0 [facility] [address] [place] [id number] [place] [address] 90030- 9147 May, Attention deficit hyperactivity disorder (ADHD), predominantly inattentive type F90.0 and Thoracic spine pain M54.6 [facility] [address] [place] [id number] [place] [address] 55344- 4735 May, [facility] [address] [place] [id number] [place] [address] 73680- 6750 Apr, [facility] [address] [place] [id number] [place] [address] 71737- 3873 Apr, [facility] [address] [place] [id number] [place] [address] 71351- 3942 Apr, [facility] [address] [place] [id number] [place] [address] 53771- 5097 Mar, [facility] [address] [place] [id number] [place] [address] 41959- 0254 Feb, [facility] [address] [place] [id number] [place] [address] 54426- 4816 Jan, [facility] [address] [place] [id number] [place] [address] 78519- 5904 Dec, [facility] [address] [place] [id number] [place] [address] 05715- 6340 Dec, [facility] [address] [place] [id number] [place] [address] 10655- 4168 Nov, [facility] [address] [place] [id number] [place] [address] 03883- 4737 Oct, [facility] [address] [place] [id number] [place] [address] 86793- 6973 Sep, ADHD (attention deficit hyperactivity disorder), inattentive type F90.0 and Abscess of scrotal wall N49.2 [facility] [address] [id number] [place] [address] 86720 -5721 Sep, Abscess of groin L02.214 [facility] [address] [place] [id number] [place] [address] 54658- 3541 Sep, Muscle spasm M62.838 [facility] [address] [place] [id number] [place] [address] 72776- 1059 Aug, ADHD (attention deficit hyperactivity disorder), inattentive type F90.0 [place] [address] 88025- 3875 Jul, Anxiety F41.9 [facility] [address] [place] [id number] [place] [address] 28366- 2242 June, Mood disorder F39 [facility] [address] [place] [id number] [place] [address] 32470- 8041 Apr, Major depressive disorder, recurrent, moderate F33.1 ; Alcohol dependence, uncomplicated F10.20 and Anxiety disorder, unspecified F41.9 [facility] [address] [id number] [place] [address] [id number] Jul, Dental examination V72.2 [facility] [address] [place] [id number] [place] [address] 63911- 9744 14 May, 2014 [facility] [address] 03492- 6629 13 May, 2014 [facility] [address] [place] [id number] [place] [address] 25980- 9764 11 Apr, 2014 [facility] [address] [facility] [id number] [address]- 2546 Apr, [facility] [address] [place] [id number] [address]- 4246 Feb, [facility] [address] [id number] [address] Feb, [facility] [id number] [address] Jan, [facility] [address] [id number] [address] Jan, [facility] [id number] [address] Dec, [facility] [address] [id number] [address] Dec, IMMUNIZATIONS No Known Immunizations SOCIAL HISTORY Never Assessed REASON FOR VISIT Controlled Med Refill 02/07/17 PLAN OF CARE VITAL SIGNS MEDICATIONS Medication Instructions Dosage Frequency Start Date End Date Duration Status Adderall 20 MG Orally 2 times a day 1 tablet 12h Jan, 28 days Active [place] 10-325 MG Orally every 6 hrs 1 tablet as needed 6h Jan, 28 days Active RESULTS No Results PROCEDURES No Known procedures INSTRUCTIONS MEDICATIONS ADMINISTERED No Known Medications MEDICAL (GENERAL) HISTORY Type Description Date Medical History attention deficit hyperactivity disorder Surgical History tonsilectomy Surgical History Right testicle removed. Hospitalization History overnight stay for head injury 2010
--- OUTSIDE RECORDS SUMMARY | 2018-05-11 19:32 | XMS REPORT ---
Author Author JESUS RICE [facility] Address [address] [place] [address] Care Team Providers Care Automation Tender Name Role Phone JESUS RICE Unavailable PROBLEMS Type Condition ICD9-CM Code [id number] Code Onset Dates Condition Status SNOMED Code Problem Attention deficit hyperactivity disorder (ADHD), predominantly inattentive type F90.0 Active 14045675 Problem Abscess of groin L02.214 Active 94899244 Problem Alcohol dependence, uncomplicated F10.20 Active 66004277 Problem Major depressive disorder, recurrent, moderate F33.1 Active 13852658 Problem Anxiety disorder, unspecified F41.9 Active 758625436 ALLERGIES Unknown Allergies SOCIAL HISTORY No smoking Hx information available PLAN OF CARE VITAL SIGNS MEDICATIONS Medication Instructions Dosage Frequency Start Date End Date Duration Status Adderall 30 MG Orally Once a day 1 tablet in the morning 24h Jan, Active RESULTS No Results PROCEDURES No Known procedures IMMUNIZATIONS No Known Immunizations
--- OUTSIDE RECORDS SUMMARY | 2018-05-11 19:32 | XMS REPORT ---
Author LOKI Barbour [facility] eClinical[employer] Address Unknown Phone Unavailable Care Team Providers Care Head Rigger Name Role Phone LOKI LOPEZ CP Unavailable Allergies, Adverse Reactions, Alerts Substance Reaction Event Type N.K.D.A. Info Not Available Non Drug Allergy Problems Problem Type Condition Code Onset Dates Condition Status Problem Anxiety disorder, unspecified F41.9 Active Problem Alcohol dependence, uncomplicated F10.20 Active Problem Major depressive disorder, recurrent, moderate F33.1 Active Assessment Muscle spasm M62.838 Active Medications Medication Code System Code Instructions Start Date End Date Status Dosage Tramadol HCl [facility] [address]-86 50 mg Orally every 6 hrs Sep 24, 2015 1 tablet as needed Adderall [facility] [address]-37 20 mg Orally Once a day September 10, 2015 1 tablet in the morning Procedures Procedure Coding System Code Date Office Visit, Est Pt., Level 2 CPT-4 73412 Sep 24, 2015 Vital Signs Date/Time: Sep 24, 2015 Cardiac Monitoring Heart Rate 76 bpm Weight 171.1 lbs Height 71 in BMI 23.86 Index Blood Pressure Diastolic 83 mmHg Blood Pressure Systolic 134 mmHg Results No Known Results Summary Purpose eClinicalWorks Submission
--- OUTSIDE RECORDS SUMMARY | 2018-05-11 19:32 | XMS REPORT ---
Author JESUS Duran Organization [employer] Address Unknown Phone Unavailable Care Team Providers Care Woodwind Instrument Repairer Name Role Phone JESUS RICE CP Unavailable Allergies, Adverse Reactions, Alerts Substance Reaction Event Type N.K.D.A. Info Not Available Non Drug Allergy Problems Problem Type Condition Code Onset Dates Condition Status Problem Anxiety disorder, unspecified F41.9 Active Problem Alcohol dependence, uncomplicated F10.20 Active Problem Major depressive disorder, recurrent, moderate F33.1 Active Assessment ADHD (attention deficit hyperactivity disorder), inattentive type F90.0 Active Medications Medication Code System Code Instructions Start Date End Date Status Dosage Adderall [facility] [address]-36 20 mg Orally Once a day September 10, 2015 1 tablet in the morning Procedures Procedure Coding System Code Date Office Visit, Est Pt., Level 3 CPT-4 74524 September 10, 2015 Vital Signs Date/Time: September 10, 2015 Cardiac Monitoring Heart Rate 69 bpm Weight 172.6 lbs Height 71 in Blood Pressure Diastolic 98 mmHg Blood Pressure Systolic 126 mmHg Results No Known Results Summary Purpose eClinicalWorks Submission
--- OUTSIDE RECORDS SUMMARY | 2018-05-11 19:32 | XMS REPORT ---
Author JESUS Duran Organization [employer] Address Unknown Phone Unavailable Care Team Providers Care Group Segment Consultant Name Role Phone JESUS RICE CP Unavailable Allergies, Adverse Reactions, Alerts Substance Reaction Event Type N.K.D.A. Info Not Available Non Drug Allergy Problems Problem Type Condition Code Onset Dates Condition Status Problem Major depressive disorder, recurrent, moderate F33.1 Active Problem Anxiety disorder, unspecified F41.9 Active Problem Abscess of groin L02.214 Active Assessment Abscess of scrotal wall N49.2 Active Problem Alcohol dependence, uncomplicated F10.20 Active Assessment ADHD (attention deficit hyperactivity disorder), inattentive type F90.0 Active Medications Medication Code System Code Instructions Start Date End Date Status Dosage [place] [facility] [address]-09 5-325 MG Orally every 6 hrs Oct 11, 2015 1 tablet as needed Adderall [facility] [address]-31 20 mg Orally Once a day September 10, 2015 1 tablet in the morning Bactrim DS [facility] [address]-66 800-160 MG Orally Twice a day Oct 05, 2015 Oct 14, 2015 1 tablet Procedures Procedure Coding System Code Date Office Visit, Est Pt., Level 3 CPT-4 73118 Oct 11, 2015 Vital Signs Date/Time: Oct 11, 2015 Cardiac Monitoring Heart Rate 100 bpm Weight 170.5 lbs Height 71 in BMI 23.78 Index Blood Pressure Diastolic 82 mmHg Blood Pressure Systolic 124 mmHg Results No Known Results Summary Purpose eClinicalWorks Submission
--- OUTSIDE RECORDS SUMMARY | 2018-05-11 19:32 | XMS REPORT ---
Author Author JESUS RICE [facility] Address [address] [place] [address] Care Team Providers Care Trousseau Consultant Name Role Phone JESUS RICE Unavailable PROBLEMS Type Condition ICD9-CM Code [id number] Code Onset Dates Condition Status SNOMED Code Problem Abscess of groin L02.214 Active 98049971 Problem Major depressive disorder, recurrent, moderate F33.1 Active 83772281 Problem Anxiety disorder, unspecified F41.9 Active 521330950 Problem Alcohol dependence, uncomplicated F10.20 Active 80645998 ALLERGIES Unknown Allergies SOCIAL HISTORY No smoking Hx information available PLAN OF CARE VITAL SIGNS MEDICATIONS Medication Instructions Dosage Frequency Start Date End Date Duration Status Adderall 30 MG Orally Once a day 1 tablet in the morning 24h Oct, Active RESULTS No Results PROCEDURES No Known procedures IMMUNIZATIONS No Known Immunizations
--- OUTSIDE RECORDS SUMMARY | 2018-05-11 19:32 | XMS REPORT ---
Author Author JESSICA FERNÁNDEZ Organization eClinical[employer] Address Unknown Phone Unavailable Care Team Providers Care Manager Strategic Development Name Role Phone JESSICA FERNÁNDEZ CP Unavailable Allergies, Adverse Reactions, Alerts Substance Reaction Event Type N.K.D.A. Info Not Available Non Drug Allergy Problems Problem Type Condition Code Onset Dates Condition Status Problem Major depressive disorder, recurrent, moderate F33.1 Active Problem Anxiety disorder, unspecified F41.9 Active Problem Abscess of groin L02.214 Active Problem Alcohol dependence, uncomplicated F10.20 Active Assessment Abscess of groin L02.214 Active Medications Medication Code System Code Instructions Start Date End Date Status Dosage Adderall [facility] [address]-49 20 mg Orally Once a day September 10, 2015 1 tablet in the morning Bactrim DS [facility] [address]-22 800-160 MG Orally Twice a day Oct 05, 2015 Oct 15, 2015 1 tablet Procedures Procedure Coding System Code Date CULTURE, BACTERIA, OTHER CPT-4 56679 Oct 05, 2015 GABRIEL VIRUS ISOLATE, HSV CPT-4 68707 Oct 05, 2015 Office Visit, Est Pt., Level 3 CPT-4 38337 Oct 05, 2015 Vital Signs Date/Time: Oct 05, 2015 Cardiac Monitoring Heart Rate 68 bpm Weight 172 lbs Height 71 in BMI 23.99 Index Blood Pressure Diastolic 82 mmHg Blood Pressure Systolic 120 mmHg Results No Known Results Summary Purpose eClinicalWorks Submission
--- OUTSIDE RECORDS SUMMARY | 2018-05-11 19:32 | XMS REPORT ---
Author Author JESUS RICE [facility] Address [address] [place] [address] Care Team Providers Care Box Covering Machine Operator Name Role Phone JESUS RICE Unavailable PROBLEMS Type Condition ICD9-CM Code [id number] Code Onset Dates Condition Status SNOMED Code Problem Attention deficit hyperactivity disorder (ADHD), predominantly inattentive type F90.0 Active 98876690 Problem Abscess of groin L02.214 Active 98851565 Problem Anxiety disorder, unspecified F41.9 Active 478369446 Problem Alcohol dependence, uncomplicated F10.20 Active 55165917 Problem Major depressive disorder, recurrent, moderate F33.1 Active 70864412 ALLERGIES Unknown Allergies SOCIAL HISTORY No smoking Hx information available PLAN OF CARE VITAL SIGNS MEDICATIONS Medication Instructions Dosage Frequency Start Date End Date Duration Status Adderall 30 MG Orally Once a day 1 tablet in the morning 24h Feb, 28 days Active RESULTS No Results PROCEDURES No Known procedures IMMUNIZATIONS No Known Immunizations
--- OUTSIDE RECORDS SUMMARY | 2018-05-11 19:33 | XMS REPORT ---
Author Author KUN DIETRICH Jan[facility] Address Unknown Care Team Providers Care Metal Crafts Teacher Name Role Phone KUN DIETRICH Unavailable PROBLEMS Type Condition ICD9-CM Code [id number] Code Onset Dates Condition Status SNOMED Code Problem Attention deficit hyperactivity disorder (ADHD), predominantly inattentive type F90.0 Active 66207819 Problem Abscess of groin L02.214 Active 76352760 Problem Anxiety disorder, unspecified F41.9 Active 405655548 Problem Alcohol dependence, uncomplicated F10.20 Active 19192936 Problem Major depressive disorder, recurrent, moderate F33.1 Active 08925167 ALLERGIES No Known Allergies ENCOUNTERS Encounter Location Date Diagnosis [facility] [address] [address] Apr, Anxiety disorder, unspecified F41.9 [facility] [id number] [place] [address] 14 Mar, 2017 Anxiety disorder, unspecified F41.9 and Attention deficit hyperactivity disorder (ADHD), predominantly inattentive type F90.0 [facility] [id number] [place] [address] Feb, Thoracic neuritis M54.14 [facility] [id number] [place] [id number] Feb, Dental examination Z01.20 [facility] [address] [address] Jan, Thoracic neuritis M54.14 [facility] [address] [id number] Jan, Dental examination Z01.20 [facility] [address] [address] Dec, Thoracic neuritis M54.14 [facility] [id number] [place] [address] Nov, [facility] [id number] [place] [id number]- [phone] Nov, Thoracic neuritis M54.14 [facility] [id number] [place] [id number] Nov, Dental examination Z01.20 [facility] [address] [address] Oct, Thoracic neuritis M54.14 [facility] [address] [address] Sep, Thoracic neuritis M54.14 [facility] [id number] [place] [address] Sep, Thoracic neuritis M54.14 [facility] [id number] [place] [address] Aug, Thoracic neuritis M54.14 [facility] [address] [address] Jul, Thoracic neuritis M54.14 [facility] [id number] [place] [address] Jul, [facility] [id number] [place] [address] Jul, [facility] [id number] [place] [address] June, Thoracic neuritis M54.14 and Attention deficit hyperactivity disorder (ADHD), predominantly inattentive type F90.0 [facility] [id number] [place] [id number] June, Dental examination Z01.20 [facility] [id number] [place] [address] June, [facility] [id number] [address] June, Attention deficit hyperactivity disorder (ADHD), predominantly inattentive type F90.0 [facility] [id number] [address] May, Attention deficit hyperactivity disorder (ADHD), predominantly inattentive type F90.0 and Thoracic spine pain M54.6 [facility] [id number] [place] [address] May, [facility] [id number] [address] Apr, [facility] [id number] [place] [address] Apr, [facility] [id number] [address] Apr, [facility] [id number] [address] Mar, [facility] [id number] [place] [address] Feb, [facility] [id number] [address] Jan, [facility] [address] [place] [address] Dec, [facility] [id number] [place] [address] Dec, [facility] [id number] [address] Nov, [facility] [id number] [address] Oct, [facility] [id number] [address] Sep, ADHD (attention deficit hyperactivity disorder), inattentive type F90.0 and Abscess of scrotal wall N49.2 [facility] [id number] [place] [address] Sep, Abscess of groin L02.214 [facility] [id number] [place] [address]- [address] Sep, Muscle spasm M62.838 [facility] [address] [address] Aug, ADHD (attention deficit hyperactivity disorder), inattentive type F90.0 [facility] [address] [address] Jul, Anxiety F41.9 [facility] [address] [address] June, Mood disorder F39 [facility] [address] [address] Apr, Major depressive disorder, recurrent, moderate F33.1 ; Alcohol dependence, uncomplicated F10.20 and Anxiety disorder, unspecified F41.9 [facility] [address] [id number] Jul, Dental examination V72.2 [facility] [id number] [place] [address]- [address] 14 May, 2014 [facility] [id number] [place] [address] May, [facility] [id number] [place] [address] Apr, [facility] [address] [address] Apr, [facility] [id number] [place] [address]- [address] Feb, [facility] [id number] [place] [address] Feb, [facility] [address] [facility] [id number] [address] Jan, [facility] [address] [facility] [id number] [address] Jan, [facility] [address] [facility] [id number] [address] Dec, [facility] [address] [facility] [id number] [address] Dec, IMMUNIZATIONS No Known Immunizations SOCIAL HISTORY Never Assessed REASON FOR VISIT JAZMIN PLAN OF CARE Activity Details Follow Up prn Reason:filling VITAL SIGNS Blood pressure systolic 122 mmHg 2016-07-07 Blood pressure diastolic 79 mmHg 2016-07-07 MEDICATIONS Medication Instructions Dosage Frequency Start Date End Date Duration Status Adderall 20 MG Orally 2 times a day 1 tablet 12h June, 28 days Active [place] 10-325 MG Orally every 6 hrs 1 tablet as needed 6h June, 28 days Active RESULTS No Results PROCEDURES Procedure Date Ordered Result Body Site LTD ORAL EVALUATION - PROBLEM FOCUS July 07, 2016 INTRAORL-PERIAPICAL 1 FILM [id number] July 07, 2016 INSTRUCTIONS MEDICATIONS ADMINISTERED No Known Medications MEDICAL (GENERAL) HISTORY Type Description Date Medical History attention deficit hyperactivity disorder Surgical History tonsilectomy Surgical History Right testicle removed. Hospitalization History overnight stay for head injury 2010
--- OUTSIDE RECORDS SUMMARY | 2018-05-11 19:33 | XMS REPORT ---
Author Author JESUS RICE [facility] Address [address] [place] [address] Care Team Providers Care Electric Truck Driver Name Role Phone JESUS RICE Unavailable PROBLEMS Type Condition ICD9-CM Code [id number] Code Onset Dates Condition Status SNOMED Code Problem Attention deficit hyperactivity disorder (ADHD), predominantly inattentive type F90.0 Active 00691154 Problem Abscess of groin L02.214 Active 03318569 Problem Anxiety disorder, unspecified F41.9 Active 200860895 Problem Alcohol dependence, uncomplicated F10.20 Active 30150310 Problem Major depressive disorder, recurrent, moderate F33.1 Active 72833410 ALLERGIES No Information SOCIAL HISTORY Never Assessed PLAN OF CARE VITAL SIGNS MEDICATIONS Unknown Medications RESULTS No Results PROCEDURES No Known procedures IMMUNIZATIONS No Known Immunizations MEDICAL (GENERAL) HISTORY Type Description Date Medical History attention deficit hyperactivity disorder Surgical History tonsilectomy Surgical History Right testicle removed. Hospitalization History overnight stay for head injury 2010
--- OUTSIDE RECORDS SUMMARY | 2018-05-11 19:33 | XMS REPORT ---
Author Author KUN DIETRICH [facility] Address Unknown Care Team Providers Care Workshop Manager Name Role Phone KUN DIETRICH Unavailable PROBLEMS Type Condition ICD9-CM Code [id number] Code Onset Dates Condition Status SNOMED Code Problem Attention deficit hyperactivity disorder (ADHD), predominantly inattentive type F90.0 Active 89791210 Problem Abscess of groin L02.214 Active 45696128 Problem Anxiety disorder, unspecified F41.9 Active 645978784 Problem Alcohol dependence, uncomplicated F10.20 Active 16664962 Problem Major depressive disorder, recurrent, moderate F33.1 Active 13133470 ALLERGIES No Known Allergies ENCOUNTERS Encounter Location Date Diagnosis [facility] [address] [address] June, Anxiety disorder, unspecified F41.9 [facility] [id number] [place] [address] 16167- 0499 May, Anxiety disorder, unspecified F41.9 [facility] [id number] [place] [address] 42812- 7267 Apr, Anxiety disorder, unspecified F41.9 [facility] [id number] [place] [address] 51941- 3017 14 Mar, 2017 Anxiety disorder, unspecified F41.9 and Attention deficit hyperactivity disorder (ADHD), predominantly inattentive type F90.0 [facility] [id number] [place] [address] 95259- 3629 Feb, Thoracic neuritis M54.14 [facility] [id number] [place] [address] [id number] Feb, Dental examination Z01.20 [facility] [address] [address]- 9383 Jan, Thoracic neuritis M54.14 [facility] [address] [id number] Jan, Dental examination Z01.20 [facility] [id number] [place] [address] 28769- 8626 Dec, Thoracic neuritis M54.14 [facility] [id number] [place] [address] 98312- 6816 Nov, [facility] [id number] [place] [address] 91044- 5166 Nov, Thoracic neuritis M54.14 [facility] [id number] [place] [address] [id number] Nov, Dental examination Z01.20 [facility] [id number] [place] [address] 01654- 8436 Oct, Thoracic neuritis M54.14 [facility] [id number] [place] [address] 32682- 4946 Sep, Thoracic neuritis M54.14 [facility] [id number] [place] [address] 28050- 8436 Sep, Thoracic neuritis M54.14 [facility] [id number] [place] [address] 66790- 5846 Aug, Thoracic neuritis M54.14 [facility] [id number] [place] [address] 04047- 4946 Jul, Thoracic neuritis M54.14 [facility] [id number] [place] [address] 85506- 7336 Jul, [facility] [id number] [place] [address] 917289- 3276 Jul, [facility] [id number] [place] [address] 46941- 5931 June, Thoracic neuritis M54.14 and Attention deficit hyperactivity disorder (ADHD), predominantly inattentive type F90.0 [facility] [address] [id number] June, Dental examination Z01.20 [facility] [id number] [place] [address] 47630- 0082 June, [facility] [id number] [place] [address] 93703- 7606 June, Attention deficit hyperactivity disorder (ADHD), predominantly inattentive type F90.0 [facility] [id number] [place] [address] 628748- 6648 May, Attention deficit hyperactivity disorder (ADHD), predominantly inattentive type F90.0 and Thoracic spine pain M54.6 [facility] [id number] [address]- 6680 May, [facility] [id number] [place] [address] 42050- 9902 Apr, [facility] [id number] [place] [address] 64355- 2170 Apr, [facility] [id number] [place] [address] 02899- 9879 Apr, [facility] [address] [address]- 7798 08 Mar, 2016 [facility] [address] [address] Feb, [facility] [address] [address] Jan, [facility] [id number] [place] [address] 063996- 7302 Dec, [facility] [id number] [address]- 7519 Dec, [facility] [id number] [place] [address] 588188- 9993 Nov, [facility] [id number] [place] [address] 83863- 4999 Oct, [facility] [id number] [place] [address] 06837- 1524 Sep, ADHD (attention deficit hyperactivity disorder), inattentive type F90.0 and Abscess of scrotal wall N49.2 [facility] [id number] [place] [address] 73098 -1582 Sep, Abscess of groin L02.214 [facility] [id number] [place] [address] 37126- 2539 Sep, Muscle spasm M62.838 [facility] [id number] [place] [address] 72830- 7489 Aug, ADHD (attention deficit hyperactivity disorder), inattentive type F90.0 [facility] [address] 82531- 5082 Jul, Anxiety F41.9 [facility] [id number] [place] [address] 95001- 9446 June, Mood disorder F39 [facility] [id number] [place] [address] 31246- 6159 Apr, Major depressive disorder, recurrent, moderate F33.1 ; Alcohol dependence, uncomplicated F10.20 and Anxiety disorder, unspecified F41.9 [facility] [id number] [place] [address] [id number] Jul, Dental examination V72.2 [facility] [id number] [place] [address] 48993- 8767 May, [place] [address] 29468- 9055 May, [facility] [id number] [place] [address] 75243- 4646 Apr, [facility] [address] [place] [address]- 6450 Apr, [facility] [address] [facility] [id number] [address] 4[address] Feb, [facility] [id number] [address]- 6007 Feb, [facility] [address] [facility] [id number] [address]- 0302 Jan, [facility] [id number] [address]- 6056 Jan, [facility] [id number] [address]- 3343 Dec, [facility] [id number] [address]- 3976 Dec, IMMUNIZATIONS No Known Immunizations SOCIAL HISTORY Never Assessed REASON FOR VISIT filling PLAN OF CARE Activity Details Follow Up prn Reason:JALYN with hygiene VITAL SIGNS Height 71 in 2017-02-21 Blood pressure systolic 126 mmHg 2017-02-21 Blood pressure diastolic 93 mmHg 2017-02-21 MEDICATIONS Medication Instructions Dosage Frequency Start Date End Date Duration Status [place] 10-325 MG Orally every 6 hrs 1 tablet as needed 6h Jan, 28 days Active Adderall 20 MG Orally 2 times a day 1 tablet 12h Jan, 28 days Active RESULTS No Results PROCEDURES Procedure Date Ordered Result Body Site Dental no charge Feb 21, 2017 INSTRUCTIONS MEDICATIONS ADMINISTERED No Known Medications MEDICAL (GENERAL) HISTORY Type Description Date Medical History attention deficit hyperactivity disorder Surgical History tonsilectomy Surgical History Right testicle removed. Hospitalization History overnight stay for head injury 2010
--- OUTSIDE RECORDS SUMMARY | 2018-05-11 19:33 | XMS REPORT ---
Author Author JESUS RICE [facility] Address [address] [place] [address] Care Team Providers Care Cafe Team Member Name Role Phone JESUS RICE Unavailable PROBLEMS Type Condition ICD9-CM Code [id number] Code Onset Dates Condition Status SNOMED Code Problem Attention deficit hyperactivity disorder (ADHD), predominantly inattentive type F90.0 Active 98799831 Problem Abscess of groin L02.214 Active 73413214 Problem Anxiety disorder, unspecified F41.9 Active 951946416 Problem Alcohol dependence, uncomplicated F10.20 Active 91788427 Problem Major depressive disorder, recurrent, moderate F33.1 Active 76334695 ALLERGIES No Information SOCIAL HISTORY Never Assessed PLAN OF CARE VITAL SIGNS MEDICATIONS Unknown Medications RESULTS No Results PROCEDURES No Known procedures IMMUNIZATIONS No Known Immunizations MEDICAL (GENERAL) HISTORY Type Description Date Medical History attention deficit hyperactivity disorder Surgical History tonsilectomy Surgical History Right testicle removed. Hospitalization History overnight stay for head injury 2010
--- OUTSIDE RECORDS SUMMARY | 2018-05-11 19:33 | XMS REPORT ---
Author JESUS Duran Organization [employer] Address Unknown Phone Unavailable Care Team Providers Care Coat Checker Name Role Phone JESUS RICE CP Unavailable Allergies No Known Allergies Problems Problem Type Condition Code Onset Dates Condition Status Problem Major depressive disorder, recurrent, moderate F33.1 Active Problem Anxiety disorder, unspecified F41.9 Active Problem Abscess of groin L02.214 Active Problem Alcohol dependence, uncomplicated F10.20 Active Medications Medication Code System Code Instructions Start Date End Date Status Dosage Adderall [facility][NOTE 3] [address]-03 30 MG Orally Once a day Nov 08, 2015 1 tablet in the morning Results No Known Results Summary Purpose [employer] Submission
--- OUTSIDE RECORDS SUMMARY | 2018-05-11 19:33 | XMS REPORT ---
Author Author JESUS RICE Organization [facility] Address [address] [place] [address] Care Team Providers Care Wood Hacker Name Role Phone JESUS RICE Unavailable PROBLEMS Type Condition ICD9-CM Code JRH39-TF Code Onset Dates Condition Status SNOMED Code Problem Attention deficit hyperactivity disorder (ADHD), predominantly inattentive type F90.0 Active 08778354 Problem Abscess of groin L02.214 Active 73737251 Problem Anxiety disorder, unspecified F41.9 Active 341624399 Problem Alcohol dependence, uncomplicated F10.20 Active 98743245 Problem Major depressive disorder, recurrent, moderate F33.1 Active 97850014 ALLERGIES No Information ENCOUNTERS Encounter Location Date Diagnosis [place] [address] [address] Apr, Anxiety disorder, unspecified F41.[address] [address]- [address]00 Mar, Anxiety disorder, unspecified F41.9 and Attention deficit hyperactivity disorder (ADHD), predominantly inattentive type F90.0 [place] [address] [address]- 2595 Feb, Thoracic neuritis M54.14 [facility] [address] [id number] Feb, Dental examination Z01.20 [facility] [address] 79[address]- 2167 Jan, Thoracic neuritis M54.14 [facility] [address] [id number] Jan, Dental examination Z01.20 [place] [address] 69[address]- 6650 Dec, Thoracic neuritis M54.14 [facility] [id number] [place] [address] 95262- 0186 Nov, [facility] [id number] [place] [address] 366397- 5246 Nov, Thoracic neuritis M54.14 [facility] [address] [place] [address] [id number] Nov, Dental examination Z01.20 [facility] [id number] [place] [address] 00761- 6848 Oct, Thoracic neuritis M54.14 [facility] [id number] [place] [address] 84825- 6296 Sep, Thoracic neuritis M54.14 [facility] [id number] [place] [address] 25140- 7066 Sep, Thoracic neuritis M54.14 [facility] [id number] [place] [address] 70850- 8437 Aug, Thoracic neuritis M54.14 [facility] [id number] [place] [address] 03283- 6112 Jul, Thoracic neuritis M54.14 [facility] [id number] [place] [address] 24576- 7606 Jul, [facility] [id number] [place] [address] 68658- 9097 Jul, [facility] [id number] [place] [address] 87762- 0872 June, Thoracic neuritis M54.14 and Attention deficit hyperactivity disorder (ADHD), predominantly inattentive type F90.0 [facility] [address] [place] [address] [id number] June, Dental examination Z01.20 [facility] [id number] [place] [address] 26458- 1279 June, [facility] [address] [address]- 7335 June, Attention deficit hyperactivity disorder (ADHD), predominantly inattentive type F90.0 [facility] [address] [address] 9927 May, Attention deficit hyperactivity disorder (ADHD), predominantly inattentive type F90.0 and Thoracic spine pain M54.6 [facility] [id number] [place] [address] 36802- 6283 May, [facility] [id number] [place] [address]- 2223 Apr, [facility] [id number] [place] [address] 56196- 4203 Apr, [facility] [id number] [place] [address] 78476- 3237 Apr, [facility] [id number] [address]- 6691 Mar, [facility] [address], [place] [address]- 0648 Feb, [facility] [address], [place] [address]- 5689 Jan, [facility] [address], [place] [address]- 0383 Dec, [facility] [address], [place] [address]- 0480 Dec, [facility] [address] [address]5 Nov, [facility] [address]873 Oct, [facility] [address], [place] [address]- 9549 Sep, ADHD (attention deficit hyperactivity disorder), inattentive type F90.0 and Abscess of scrotal wall N49.2 [facility] [id number] [place] [address] -1964 Sep, Abscess of groin L02.214 [facility] [id number] [place] [address] 29753- 0082 Sep, Muscle spasm M62.838 [facility] [address] 46794- 1415 Aug, ADHD (attention deficit hyperactivity disorder), inattentive type F90.0 [facility] [id number] [place] [address] 59706- 5765 Jul, Anxiety F41.9 [facility] [id number] [place] [address] 64214- 8142 June, Mood disorder F39 [facility] [address] 79345- 3278 Apr, Major depressive disorder, recurrent, moderate F33.1 ; Alcohol dependence, uncomplicated F10.20 and Anxiety disorder, unspecified F41.9 [facility] [address] [id number] Jul, Dental examination V72.2 [facility] [id number] [place] [address] 19036- 8719 14 May, 2014 [facility] [id number] [place] [address] 23859- 3867 May, [facility] [id number] [place] [address] 81219- 8618 Apr, [facility] [address] 21196- 1755 Apr, [facility] [id number] [place] [address] 94126- 8284 Feb, [facility] [address] [address]16- 4169 Feb, [facility] [address] [facility] [id number] [address]- 2546 Jan, [facility] [address] [facility] [id number] [address]- 2546 Jan, [facility] [address] [facility] [id number] [address]- 2546 Dec, [facility] [address] [facility] [id number] [address]- 2546 Dec, IMMUNIZATIONS No Known Immunizations SOCIAL HISTORY Never Assessed REASON FOR VISIT Controlled Med Refill 09/20/16 PLAN OF CARE VITAL SIGNS MEDICATIONS Medication Instructions Dosage Frequency Start Date End Date Duration Status Adderall 20 MG Orally 2 times a day 1 tablet 12h Sep, 28 days Active [place] 10-325 MG Orally every 6 hrs 1 tablet as needed 6h Sep, 28 days Active RESULTS No Results PROCEDURES No Known procedures INSTRUCTIONS MEDICATIONS ADMINISTERED No Known Medications MEDICAL (GENERAL) HISTORY Type Description Date Medical History attention deficit hyperactivity disorder Surgical History tonsilectomy Surgical History Right testicle removed. Hospitalization History overnight stay for head injury 2010
--- OUTSIDE RECORDS SUMMARY | 2018-05-11 19:33 | XMS REPORT ---
Author JESUS Duran Organization [employer] Address Unknown Phone Unavailable Care Team Providers Care Health And Safety Inspector Name Role Phone JESUS RICE CP Unavailable Allergies No Known Allergies Problems Problem Type Condition Code Onset Dates Condition Status Problem Major depressive disorder, recurrent, moderate F33.1 Active Problem Anxiety disorder, unspecified F41.9 Active Problem Abscess of groin L02.214 Active Problem Alcohol dependence, uncomplicated F10.20 Active Medications Medication Code System Code Instructions Start Date End Date Status Dosage Adderall [facility] [address]-21 30 MG Orally Once a day Jan 10, 2016 1 tablet in the morning Results No Known Results Summary Purpose [employer] Submission
--- OUTSIDE RECORDS SUMMARY | 2018-05-11 19:33 | XMS REPORT ---
Author Author JESUS RICE Organization [facility] Address [address] [place] [address] Care Team Providers Care Coil Inspector Name Role Phone JESUS RICE Unavailable PROBLEMS Type Condition ICD9-CM Code FRI57-WH Code Onset Dates Condition Status SNOMED Code Problem Attention deficit hyperactivity disorder (ADHD), predominantly inattentive type F90.0 Active 87413748 Problem Abscess of groin L02.214 Active 93238503 Problem Anxiety disorder, unspecified F41.9 Active 659603584 Problem Alcohol dependence, uncomplicated F10.20 Active 91931482 Problem Major depressive disorder, recurrent, moderate F33.1 Active 91363259 ALLERGIES No Information SOCIAL HISTORY Never Assessed PLAN OF CARE VITAL SIGNS MEDICATIONS Medication Instructions Dosage Frequency Start Date End Date Duration Status [place] 10-325 MG Orally every 6 hrs 1 tablet as needed 6h June, 28 days Active Adderall 20 MG Orally 2 times a day 1 tablet 12h June, 28 days Active RESULTS No Results PROCEDURES No Known procedures IMMUNIZATIONS No Known Immunizations MEDICAL (GENERAL) HISTORY Type Description Date Medical History attention deficit hyperactivity disorder Surgical History tonsilectomy Surgical History Right testicle removed. Hospitalization History overnight stay for head injury 2010
--- OUTSIDE RECORDS SUMMARY | 2018-05-11 19:33 | XMS REPORT ---
Author JESUS Duran Organization [employer] Address Unknown Phone Unavailable Care Team Providers Care Rn Medical Inpatient Services Name Role Phone JESUS RICE CP Unavailable Allergies No Known Allergies Problems Problem Type Condition Code Onset Dates Condition Status Problem Major depressive disorder, recurrent, moderate F33.1 Active Problem Anxiety disorder, unspecified F41.9 Active Problem Abscess of groin L02.214 Active Problem Alcohol dependence, uncomplicated F10.20 Active Medications Medication Code System Code Instructions Start Date End Date Status Dosage Adderall [facility] [address]-58 30 MG Orally Once a day Nov 08, 2015 1 tablet in the morning Results No Known Results Summary Purpose [employer] Submission
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
--- NOTE | 2018-05-11 19:53 | NUR ---
CLEAN CATCH UA COLLECTED ON PATIENT.
--- NOTE | 2018-05-11 19:57 | ED GU-Male ---
General Chief Complaint: Male Reproductive Stated Complaint: GROIN PAIN Source: patient History of Present Illness Date Seen by Provider: May 11, 2018 Time Seen by Provider: 19:47 Initial Comments PT ARRIVES VIA POV FROM HOME STATES HE WOKE UP THIS AM WITH LEFT TESTICULAR/SCROTAL PAIN PAIN WAS VERY MILD THIS AM HAS PROGRESSIVELY GOTTEN WORSE THROUGHOUT THE DAY AND IS NOW SEVERE STATES TESTICLE IS A LITTLE SWOLLEN WELL NO PAIN ON URINATION NO PENILE DISCHARGE OR LESIONS/SORES NO ABDOMINAL PAIN OR BACK PAIN NO FEVER NO NAUSEA/VOMITING TOOK IBUPROFEN AT 1300 AND 3 ALEVE 3 HOURS AGO--NO RELIEF NO HISTORY OF SIMILAR PT HAS HAD PREVIOUS 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 PT IS VERY ANXIOUS ABOUT LOSING HIS LEFT TESTICLE Allergies and Home Medications Allergies Coded Allergies: tramadol HCl (Verified Allergy, Unknown, 05/11/18) SEIZURES Patient Home Medication List Home Medication List Reviewed: Yes Review of Systems Review of Systems Constitutional: no symptoms reported Respiratory: no symptoms reported Cardiovascular: no symptoms reported Gastrointestinal: no symptoms reported Genitourinary: see HPI Musculoskeletal: no symptoms reported Skin: no symptoms reported Psychiatric/Neurological: No Symptoms Reported Endocrine: No Symptoms Reported Hematologic/Lymphatic: No Symptoms Reported Past Pvriiza-Yuthif-Wpaujh Hx Patient Social History Recent Foreign Travel: No Contact w/Someone Who Travel: No Immunizations Up To Date Tetanus Booster (TDap): Unknown Past Medical History Surgeries: Yes (RIGHT ORCHIECTOMY AGE 19 FOR UNDESCENDED TESTICLE) Testicular Respiratory: No Cardiac: No Neurological: No Reproductive Disorders: Yes (RIGHT UNDESCENDED TESTICLE -S/P ORCHIECTOMY AGE 19 ) Sexually Transmitted Disease: No HIV/AIDS: No Genitourinary: Yes ( ABOVE) Gastrointestinal: No Musculoskeletal: No Endocrine: No HEENT: No Cancer: No Psychosocial: No Integumentary: No Blood Disorders: No Adverse Reaction/Blood Tranf: No Physical Exam Vital Signs Vital Signs - First Documented 05/11/18 19:27 Temp 98.2 Pulse 108 Resp 20 B/P (MAP) 150/93 (112) Pulse Ox 97 O2 Delivery Room Air Capillary Refill : Height, Weight, BMI Height: 5'10" Weight: 175lbs. oz. 79.488870io; BMI Method:Estimated General Appearance: WD/WN, no apparent distress, other (WALKS WITHOUT DIFFICULTY, VERY ANXIOUS, LOOKS SLIGHTLY UNCOMFORTABLE) Cardiovascular: regular rate, rhythm, no murmur Respiratory: normal breath sounds Gastrointestinal: non tender, soft Male: inguinal tenderness (LEFT), testicular tenderness (LEFT), other (DIFFUSE TENDERNESS TO LEFT SCROTUM AND TESTICLE. NO OVERLYING ERYTHEMA OR INDURATION. NO LESIONS/ SORES, ETC. NO PENILE DRAINAGE. RIGHT TESTICLE IS ABSENT. 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, no motor/sensory deficits, alert, oriented x 3 Skin: normal color, warm/dry; No rash Progress/Results/Core Measures Suspected Sepsis SIRS Temperature: Pulse: Respiratory Rate: Blood Pressure / Mean: Results/Orders Lab Results Laboratory Tests Test 05/11/18 19:53 Range/Units Urine Color YELLOW Urine Clarity SLIGHTLY CLOUDY Urine pH 6 5-9 Urine Specific Arnett 1.015 L 1.016-1.022 Urine Protein 1+ H NEGATIVE Urine Glucose (UA) NEGATIVE NEGATIVE Urine Ketones 1+ H NEGATIVE Urine Nitrite NEGATIVE NEGATIVE Urine Bilirubin NEGATIVE NEGATIVE Urine Urobilinogen NORMAL NORMAL MG/DL Urine Leukocyte Esterase 1+ H NEGATIVE Urine RBC (Auto) NEGATIVE NEGATIVE Urine RBC NONE /HPF Urine WBC 0-2 /HPF Urine Crystals NONE /LPF Urine Bacteria NEGATIVE /HPF Urine Casts NONE /LPF Urine Mucus LARGE H /LPF Urine Culture Indicated NO My Orders Orders - LUCILLE RITTER DO Ua Culture If Indicated (05/11/18 19:46) Neis Jaren Dna Urine Test (05/11/18 19:52) Chlamydia Trachomatis Urine (05/11/18 19:52) Ketorolac Injection (Toradol Injection) (05/11/18 20:30) Ceftriaxone For Im Use (Rocephin For Im (05/12/18 09:00) Lidocaine 1% Inj 20 Ml (Xylocaine 1% Inj (05/11/18 20:45) Ceftriaxone For Im Use (Rocephin For Im (05/11/18 20:35) Medications Given in ED Current Medications Medications Dose Ordered Sig/Delroy Route Start Time Stop Time Status Last Admin Dose Admin Ketorolac Tromethamine 60 mg ONCE ONCE IM 05/11/18 20:30 05/11/18 20:31 DC 05/11/18 20:32 60 MG Lidocaine HCl 2.1 ml ONCE ONCE INJ 05/11/18 20:45 05/11/18 20:46 05/11/18 20:43 2.1 ML Vital Signs/I&O 05/11/18 19:27 Temp 98.2 Pulse 108 Resp 20 B/P (MAP) 150/93 (112) Pulse Ox 97 O2 Delivery Room Air Capillary Refill : Progress Note : Progress Note GIVEN ROCEPHIN AND TORADOL Departure Communication (Admissions) CURRENTLY THERE IS NO ULTRASOUND AVAILABLE AT THIS FACILITY, ALSO NO UROLOGY SERVICES AVAILABLE AT THIS TIME 2022--CALLED [facility]--SPOKE WITH ER --ACCEPTS PT FOR TRANSFER Impression Primary Impression: ACUTE LEFT TESTICULAR PAIN Additional Impression: S/P RIGHT ORCHIECTOMY Disposition: 02 XFER SHT-TRM HOSP Condition: Stable Transfer Transfer Facility: [facility] Method of Transfer: Private Vehicle Departure-Patient Inst. Referrals: NO,LOCAL PHYSICIAN (PCP/Family) Primary Care Physician LUCILLE RITTER DO May 11, 2018 19:57
[2018-05-11 20:02] LABS: BILIRUBIN,URINE NEGATIVE (NEGATIVE); CLARITY,URINE SLIGHTLY CLOUDY; COLOR,URINE YELLOW; GLUCOSE, URINE (UA) NEGATIVE (NEGATIVE); KETONES,URINE 1+ (NEGATIVE); LEUKOCYTE ESTERASE ,URINE 1+ (NEGATIVE); NITRITE,URINE NEGATIVE (NEGATIVE); PH,URINE 6 (5-9); PROTEIN,URINE 1+ (NEGATIVE); UROBILINOGEN,URINE NORMAL (NORMAL)
[2018-05-11 20:10] LABS: BACTERIA,URINE NEGATIVE /HPF; WBC,URINE 0-2 /HPF
[2018-05-11] MEDS ORDERED: KETOROLAC 60 MG/2 ML VIAL IM ONE (20:30)
[2018-05-11] MEDS ORDERED: cefTRIAXone 1,000 MG/2.86 ml vial (IM ONLY) ONE (20:35)
[2018-05-11] MEDS ORDERED: LIDOCAINE 1% INJ 20 ML 20 ML VIAL INJ ONE (20:45)
[2018-05-11 20:51] VITALS: BP 150/93
--- NOTE | 2018-05-11 20:55 | NUR ---
TRANSFER PACKET PRINTED AND GIVEN TO PATIENT TO GIVE TO [facility] ER. PATIENT ADVISED TO GO DIRECTLY TO [facility] ER AND CHECK INTO THE ER. PATIENT HAS STABLE VITAL SIGNS UPON TRANSFER. PATIENT IS GOING TO [facility] BY PRIVATE VEHICLE AND SISTER IS DRIVING.
[2018-05-12] MEDS ORDERED: cefTRIAXone 1,000 MG/2.86 ml vial (IM ONLY) IM SCH (09:00)
== END 2018-05-11 20:57 | disposition short-term general hospital (02) ==
LOC: EDUNIT# 19:24 → ER 19:26
DX: N50.812 Left testicular pain (principal); Z88.6 Allergy status to analgesic agent; Z90.79 Acquired absence of other genital organ(s)
CPT/HCPCS: 36415; 81000; 87491; 87591

== ENCOUNTER → 2019-08-19 | Outpatient (CLI) | payer OTHER ==
[2019-08-19 10:28] LABS: SEMEN VOLUME 1.8 ML (1.5-5.0)
== END ==
LOC: LABNPT 09:44
PROVIDERS: ATTEND Nurse Practitioner Community Health
DX: Z31.41 Encounter for fertility testing (principal)
CPT/HCPCS: 89320